=== PATIENT | female | born 1965 | race African-American/Black ===

== ENCOUNTER 2017-04-16 15:43 | Emergency (ER) | payer SELFPAY ==
[2017-04-16 16:45] LABS: Bilirubin Negative (Negative); Blood, Urine Negative (Negative); Clarity CLOUDY (Clear); Glucose, Urine (Dipstick) Negative (Negative); Leukocyte Small (Negative); Nitrite Negative (Negative); Protein, Urine (Dipstick) Negative (Neg-Trace); Urobilinogen 0.2 mg/dL (0.2-1.0)
[2017-04-16 16:47] LABS: Pathc Cast-AUWi Flag 1.89 (0-2.49)
[2017-04-16 16:57] LABS: Bacteria/HPF 2+ HPF (None Seen); Hyaline Casts/LPF NONE SEEN LPF (0-3 Hyaline); RBC/HPF 0-3 HPF (0-3); Squamous Epithelial 0-3 HPF (0-3)
[2017-04-16 16:58] LABS: Trichomonas/HPF Rare HPF (None Seen)
[2017-04-16 18:36] LABS: Hemoglobin 10.7 g/dL (12.0-16.0); Mean Corpuscular HGB CONC 32.7 g/dL (32.0-36.0); Mean Corpuscular Hemoglobin 26.2 pg (27.0-31.0); Mean Platelet Volume 8.6 fL (7.4-10.4); Platelet Count 128 thou/uL (130-400); RBC Distribution Width 18.7 % (11.5-14.5); White Blood Cell (WBC) Count 4.3 thou/uL (4.8-10.8)
[2017-04-16 18:39] LABS: ALT (SGPT) 28 U/L (8-55); AST (SGOT) 80 U/L (5-34); Albumin 4.3 g/dL (3.5-5.0); Alkaline Phosphatase 134 U/L (40-150); Anion Gap 18 mmol/L (10-20); BUN (Urea Nitrogen) Less than 4 mg/dL (7.0-18.7); Bilirubin, Total 0.3 mg/dL (0.2-1.2); Calc. Creatinine Clearance 0 mL/min (70-130); Carbon Dioxide 24 mmol/L (22-29); Chloride 92 mmol/L (98-107); Estimated GFR-MDRD Greater than 90; Globulin 4.6 g/dL (2.4-3.5); Glucose 87 mg/dL (70-105); Lipase 25 U/L (8-78); Potassium 3.8 mmol/L (3.5-5.1); Protein, Total 8.9 g/dL (6.0-8.3); Sodium 130 mmol/L (136-145)
[2017-04-16 18:50] LABS: Anisocytosis SLIGHT = 6-15 cells (100X) (0-5/hpf); Band 1 % (5-11); Eosinophils 2 % (0-10); Hypochromia SLIGHT = 6-15 cells (100X) (0-5/hpf); Lymphocytes 44 % (21-51); MDiff Complete? YES; Monocytes 3 % (0-10); Neutrophil 47 % (42-75); PLT Morphology Comment Appears Decreased; Polychromasia SLIGHT = 2-3 cells (100X) (0-2/hpf); Target Cells MODERATE= 6-15 cells (100X) (0-1/hpf)
[2017-04-16] MEDS ORDERED: Azithromycin 250 MG TAB ONE (18:51)
[2017-04-16] MEDS ORDERED: Lidocaine 1% PF 5 ML VIAL ONE (18:51)
[2017-04-16] MEDS ORDERED: cefTRIAXone\\ROCEPHIN 250 MG VIAL ONE (18:51)
[2017-04-16 22:50] LABS: Lactic Acid 3.8 mmol/L (0.5-2.2)
--- NOTE | 2017-04-17 00:19 | ULT ---
EXAM: PELVIC ULTRASOUND 04/16/17 HISTORY: Pelvic pain. COMPARISON: None. TECHNIQUE: Transabdominal and endovaginal imaging of the pelvis is performed. Ovaries are interrogated with torres scale, color flow, doppler imaging and spectral waveform analysis. FINDINGS: The uterus is identified measuring 7.6 x 4.6 x 5.7 cm. At the uterine fundus, there is a heterogeneou s soft tissue echotexture mass with components of calcification. Degenerating fibroid is favored but cannot be completely verified. Mass measures 2.8 x 3.0 x 3.2 cm. Suboptimal evaluation of the endometrium. Right ovary measures 2.6 x 4.1 x 1.8 cm. Left ovary measures 2.3 x 1.8 x 1.8 cm. The ovaries have a n ormal echotexture. No free fluid. OVARIAN DOPPLER: Vascular flow to the left and right ovary. IMPRESSION: Heterogeneous mass in the uterine fundus with calcifications. Uterine leiomyoma is favored. Compariso n made with renal stone CT from 04/07/15 demonstrates a corresponding calcified mass in the uterine f undus. POS: [facility]
[2017-04-18 01:23] LABS: Chlamydia by PCR Not Detected (NotDetected); GC by PCR Not Detected (NotDetected)
== END 2017-04-16 22:52 | disposition home or self-care (01) ==
LOC: ERS 15:43
DX: A59.01 Trichomonal vulvovaginitis (principal); N39.0 Urinary tract infection, site not specified; N73.9 Female pelvic inflammatory disease, unspecified; K52.9 Noninfective gastroenteritis and colitis, unspecified; I49.9 Cardiac arrhythmia, unspecified; F41.9 Anxiety disorder, unspecified; F20.9 Schizophrenia, unspecified; F31.9 Bipolar disorder, unspecified
CPT/HCPCS: 36415; 76856; 80053; 81003; 81015; 83605; 83690; 85025; 87086; 87480; 87491; 87510; 87591; 87660; 96360; 96361; 96372; J0696; J2001

== ENCOUNTER 2017-06-26 14:08 | Inpatient (IN) | payer SELFPAY ==
[2017-06-26 15:20] LABS: Hemoglobin 10.4 g/dL (12.0-16.0); Mean Corpuscular Hemoglobin 26.5 pg (27.0-31.0); Mean Corpuscular Volume 80.1 fl (81.0-99.0); Mean Platelet Volume 7.5 fL (7.4-10.4); Platelet Count 224 thou/uL (130-400); RBC Distribution Width 20.4 % (11.5-14.5); Red Blood Cell (RBC) Count 3.94 mill/uL (4.20-5.40)
[2017-06-26 15:41] LABS: #Basophils 0.1 thou/uL (0.0-0.2); #Lymphocytes 0.7 thou/uL (1.20-3.40); #Monocytes 0.5 thou/uL (0.11-0.59); #Neutrophils 3.7 thou/uL (1.40-6.50); %Basophils 1.3 % (0.0-1.0); %Eosinophils 0.2 % (0.0-10.0); %Lymphocytes 14.5 % (21.0-51.0); %Monocytes 9.7 % (0.0-10.0); %Neutrophils 74.2 % (42.0-75.0); Anisocytosis SLIGHT = 6-15 cells (100X) (0-5/hpf); MDiff Complete? YES; PLT Morphology Comment Appears Adequate
[2017-06-26 15:44] LABS: ALT (SGPT) 28 U/L (8-55); AST (SGOT) 51 U/L (5-34); Albumin 4.3 g/dL (3.5-5.0); Alkaline Phosphatase 110 U/L (40-150); Anion Gap 16 mmol/L (10-20); BUN (Urea Nitrogen) 5 mg/dL (7.0-18.7); Bilirubin, Total 0.9 mg/dL (0.2-1.2); CK (CPK) 434 U/L (29-168); Calc. Creatinine Clearance 0 mL/min (70-130); Calcium 9.7 mg/dL (7.8-10.44); Carbon Dioxide 25 mmol/L (22-29); Chloride 82 mmol/L (98-107); Estimated GFR-MDRD Greater than 90; Globulin 4.5 g/dL (2.4-3.5); Glucose 80 mg/dL (70-105); Potassium 4.1 mmol/L (3.5-5.1); Protein, Total 8.8 g/dL (6.0-8.3)
[2017-06-26 15:47] LABS: Sodium 119 mmol/L (136-145)
[2017-06-26 17:13] LABS: Bilirubin Negative (Negative); Blood, Urine Trace (Negative); Clarity CLOUDY (Clear); Glucose, Urine (Dipstick) Negative (Negative); Leukocyte Large (Negative); Nitrite Positive (Negative); Protein, Urine (Dipstick) Trace mg/dL (Neg-Trace); Specific Gravity, Urine 1.013 (1.002-1.036); Urobilinogen 0.2 mg/dL (0.2-1.0)
[2017-06-26 17:18] LABS: Bacteria/HPF 4+ HPF (None Seen); Hyaline Casts/LPF 0-3 HYALINE CAST LPF (0-3 Hyaline); Pathc Cast-AUWi Flag 0.13 (0-2.49); Squamous Epithelial 0-3 HPF (0-3)
[2017-06-26 17:27] LABS: Troponin I Less than 0.010 ng/mL (< 0.028)
--- NOTE | 2017-06-26 17:32 | RAD ---
PORTABLE CHEST: 06/26/17 HISTORY: Nausea, vomiting. FINDINGS/IMPRESSION: Lungs are clear of infiltrate. Heart and mediastinum unremarkable. No acute process. POS: [facility]
[2017-06-26 17:51] LABS: Amphetamine Not Detected (NotDetected); Barbiturates Screen Not Detected (NotDetected); Benzodiazepine Screen Not Detected (NotDetected); Cocaine Metabolite Screen Not Detected (NotDetected); Medtox Control Line Valid? VALID (VALID); Medtox Reader # READER 4; Methadone Not Detected (NotDetected); Methamphetamine Not Detected (NotDetected); Opiate Screen Not Detected (NotDetected); Oxycodone Screen Not Detected (NotDetected); Phencyclidine (PCP) Not Detected (NotDetected); THC/Cannabinoid Screen Not Detected (NotDetected); Tricyclic Screen Not Detected (NotDetected)
[2017-06-26 17:56] LABS: Acetaminophen Less than 6.0 mcg/mL (10.0-30.0); Alcohol Less than 10 mg/dL (Less than 10); Salicylate Less than 8.0 mg/dL (15.0-30.0)
[2017-06-26] MEDS ORDERED: cefTRIAXone\\ROCEPHIN 2 GM in Sodium Chloride 0.9% 100 ML IVPB SCH (18:45)
[2017-06-26] MEDS ORDERED: Ondansetron ODT 4 MG TAB SL PRN (21:10)
[2017-06-26] MEDS ORDERED: Sodium Chloride 0.9% 1,000 ML IV SCH (21:10)
[2017-06-26] MEDS ORDERED: Ondansetron HCl/PF 4 MG/2 ML Vial IVP PRN (21:10)
[2017-06-26] MEDS ORDERED: Venlafaxine HCl XR 150 MG CAP PO SCH (21:30)
[2017-06-26] MEDS: Sodium Chloride 0.9% 1,000 ML IV SCH ×2 (22:29→23:57)
[2017-06-27 01:32] VITALS: BMI 23.4
[2017-06-27 04:46] LABS: Potassium, Urine Less than 10.0 mmol/L; Sodium, Urine 27 mmol/L (Not Available)
[2017-06-27 08:55] LABS: Anion Gap 17 mmol/L (10-20); BUN (Urea Nitrogen) 4 mg/dL (7.0-18.7); Calc. Creatinine Clearance 126 mL/min (70-130); Calcium 8.8 mg/dL (7.8-10.44); Carbon Dioxide 21 mmol/L (22-29); Chloride 97 mmol/L (98-107); Estimated GFR-MDRD Greater than 90; Glucose 67 mg/dL (70-105); Potassium 3.5 mmol/L (3.5-5.1); Sodium 131 mmol/L (136-145)
[2017-06-27] MEDS: Venlafaxine HCl XR 150 MG CAP PO SCH (08:57)
[2017-06-27] MEDS: Amlodipine 5 MG TAB PO SCH (08:57)
[2017-06-27] MEDS: Sodium Chloride 0.9% 1,000 ML IV SCH (08:58)
[2017-06-27 09:49] LABS: Thyroid Stimulating Hormone 1.5432 uIU/mL (0.35-4.94)
[2017-06-27] MEDS ORDERED: Dextrose 5% in Water 1,000 ML IV SCH (10:15)
[2017-06-27 10:32] LABS: Anion Gap 12 mmol/L (10-20); BUN (Urea Nitrogen) 5 mg/dL (7.0-18.7); Calc. Creatinine Clearance 100 mL/min (70-130); Calcium 8.7 mg/dL (7.8-10.44); Carbon Dioxide 24 mmol/L (22-29); Chloride 98 mmol/L (98-107); Estimated GFR-MDRD Greater than 90; Glucose 93 mg/dL (70-105); Potassium 3.7 mmol/L (3.5-5.1); Sodium 130 mmol/L (136-145)
[2017-06-27 10:39] LABS: CKMB 4.6 ng/mL (0-6.6); Troponin I Less than 0.010 ng/mL (< 0.028)
[2017-06-27] MEDS ORDERED: levETIRAcetam 500 MG TAB PO SCH (10:45)
[2017-06-27] MEDS: cefTRIAXone\\ROCEPHIN 2 GM in Sodium Chloride 0.9% 100 ML IVPB SCH (10:49)
[2017-06-27 11:24] LABS: Osmolality, Urine 119 mOsm/kg (300-900)
[2017-06-27 11:28] LABS: Sodium, Urine 30 mmol/L (Not Available)
[2017-06-27 12:52] LABS: Anion Gap 13 mmol/L (10-20); BUN (Urea Nitrogen) 6 mg/dL (7.0-18.7); Calc. Creatinine Clearance 103 mL/min (70-130); Calcium 8.7 mg/dL (7.8-10.44); Carbon Dioxide 25 mmol/L (22-29); Chloride 97 mmol/L (98-107); Estimated GFR-MDRD Greater than 90; Glucose 94 mg/dL (70-105); Magnesium 1.8 mg/dL (1.6-2.6); Potassium 3.5 mmol/L (3.5-5.1); Sodium 131 mmol/L (136-145)
--- NOTE | 2017-06-27 13:52 | CON ---
DATE OF CONSULTATION: 06/27/2017 REASON FOR CONSULTATION: Hyponatremia. TIME OF CONSULTATION: 08:15 A.M. on 06/27/2017. HISTORY OF PRESENT ILLNESS: This is a very pleasant 51-year-old female, who presented to the [facility] for nausea. The patient was noted to have sodium 119, was admitted and no further follow up labs w ere done. The patient denies no headache, numbness, tingling or weakness. Denies any excessive flui d intake. PAST MEDICAL HISTORY: Significant for arrhythmia, history of hypertension, uterine fibroids, colitis , seizures. PAST SURGICAL HISTORY: Appendectomy, tubal ligation, orthopedic surgery, left ankle surgery. SOCIAL ECONOMIC HISTORY: The patient drinks 6 beers per day. FAMILY HISTORY: Negative for ESRD. ALLERGIES: Reviewed. HOME MEDICATIONS: List reviewed. HOSPITAL MEDICATIONS: Reviewed. REVIEW OF SYSTEMS: Fifteen point review of systems was performed and negative except for positives n oted above. GENERAL: Weakness- HEAD: Headache- NECK: No swelling or lumps. NOSE: No epistaxis or discharge. EYES: No diplopia or pain. RESPIRATORY: Dyspnea- CARDIOVASCULAR: Chest pain- GASTROINTESTINAL: Nausea- /HEAVY DUTY MECHANIC: Hematuria- MUSCULOSKELETAL: No joint pain. NEUROPSYCHIATIC SYSTEMS: No suicidal ideation. No ideation. SKIN: Denies any rash or ulcer. CONSTITUTIONAL: No fever or chills. PHYSICAL EXAMINATION: GENERAL: Patient is awake and alert. VITAL SIGNS: Afebrile, pulse 95, breathing 18, and blood pressure 121/82. GENERAL APPEARANCE AND MENTAL STATUS: Fair. HEAD/NECK: Normocephalic. Atraumatic. EYES: EOMI. No deformity. EARS: Clear. No ulcers. NOSE: Intact. No lesions. MOUTH: Clear. No discharge. THROAT: Clear. No exudate. LUNGS: Clear. No crackles. CARDIAC: S1, S2. No rub. ABDOMEN: Benign. BS+. GENITALIA/RECTUM: Allen absent. BACK/EXTREMITIES: Edema 0+ Ulcer- NEUROLOGICAL: Alert and motor intact. SKIN: Rash- Bruise- LYMPHATICS: Edema- Ulcer- LABORATORY DATA: Hemoglobin is 10.5, potassium 3.5. Sodium was 131. This was done at 5:00 a.m. thi s morning. ASSESSMENT AND RECOMMENDATIONS: Hyponatremia due to beer potomania versus excessive fluid intake. I will stop the normal saline and start the patient on D5W to lower the sodium and check sodium every 2-4 hours. This was discussed with the primary team.
[2017-06-27] MEDS: Dextrose 5% in Water 1,000 ML IV SCH ×2 (14:30→20:38)
[2017-06-27 16:15] LABS: Anion Gap 11 mmol/L (10-20); BUN (Urea Nitrogen) 5 mg/dL (7.0-18.7); Calc. Creatinine Clearance 111 mL/min (70-130); Calcium 8.7 mg/dL (7.8-10.44); Carbon Dioxide 26 mmol/L (22-29); Chloride 96 mmol/L (98-107); Estimated GFR-MDRD Greater than 90; Glucose 96 mg/dL (70-105); Potassium 3.5 mmol/L (3.5-5.1); Sodium 129 mmol/L (136-145)
[2017-06-27 16:22] LABS: CKMB 4.6 ng/mL (0-6.6); Troponin I Less than 0.010 ng/mL (< 0.028)
[2017-06-27 20:31] LABS: Anion Gap 13 mmol/L (10-20); BUN (Urea Nitrogen) 4 mg/dL (7.0-18.7); Calc. Creatinine Clearance 113 mL/min (70-130); Calcium 8.6 mg/dL (7.8-10.44); Carbon Dioxide 23 mmol/L (22-29); Chloride 97 mmol/L (98-107); Estimated GFR-MDRD Greater than 90; Glucose 99 mg/dL (70-105); Potassium 3.3 mmol/L (3.5-5.1); Sodium 130 mmol/L (136-145)
[2017-06-27] MEDS: levETIRAcetam 500 MG TAB PO SCH (20:37)
[2017-06-28] MEDS: Dextrose 5% in Water 1,000 ML IV SCH (05:39)
[2017-06-28 05:58] LABS: Anion Gap 12 mmol/L (10-20); BUN (Urea Nitrogen) Less than 4 mg/dL (7.0-18.7); Calc. Creatinine Clearance 119 mL/min (70-130); Calcium 8.9 mg/dL (7.8-10.44); Carbon Dioxide 26 mmol/L (22-29); Chloride 98 mmol/L (98-107); Estimated GFR-MDRD Greater than 90; Glucose 91 mg/dL (70-105); Potassium 3.3 mmol/L (3.5-5.1); Sodium 133 mmol/L (136-145)
--- NOTE | 2017-06-28 06:23 | HP ---
DATE OF ADMISSION: 06/26/2017 REASON FOR ADMISSION AND CHIEF COMPLAINT: Hyponatremia, nausea, vomiting. HISTORY OF PRESENT ILLNESS: Ms. Todd is a 51-year-old -Malagasy female who was initially se en in the clinic a day before for headache. The patient was found to have blood pressure and she was not taking any medications prior to that, also not taking her seizure medications properly. The monse herrera was found to have hyponatremia and the lab work done in the clinic. Her sodium was 122. The jamilah lemus advised to go to the emergency room. In view of that, the patient came to the ER and found to have sodium of 119. She has been having nausea, vomiting for a day, vomited few times. The patient also drinks alcohol almost daily, drinks 6 beers a day. Has not been taking her seizure medications and other medication regularly. In the ER, the patient is hemodynamically stable. She was started o n IV fluids. ER physician started normal saline at 500 mL per hour and also received a dose of Rocep hin in view of her urinary tract infection. A Nephrology consult was done. PAST MEDICAL HISTORY: 1. Partial complex seizure disorder. 2. Alcohol abuse. 3. Noncompliant with medications. 4. Bipolar disorder. PAST SURGICAL HISTORY: 1. Status post appendectomy. 2. Status post tubal ligation. 3. Status post left hand surgery. CURRENT MEDICATIONS: The patient supposed to be taking Dilantin 200 b.i.d., multivitamin daily, Kepp ra 500 b.i.d., folic acid daily, Venlafaxine 150 daily, Seroquel 50 mg at bedtime, amlodipine 5 mg da moris. ALLERGIES: No known drug allergies. FAMILY HISTORY: Nothing of interest. SOCIAL HISTORY: The patient lives with family. No history of smoking. Drinks alcohol daily almost 6 beers a day. REVIEW OF SYSTEMS: Cardiovascular: No chest pain. No shortness of breath. Respiratory: No fever or cough. Gastrointestinal: Has nausea and vomiting. No abdominal pain. Genitourinary: No dysuri a or hematuria. Central nervous system: No headache, no dizziness. PHYSICAL EXAMINATION: GENERAL: The patient is alert, awake, oriented x3. VITAL SIGNS: Temperature 98, pulse 98, respirations 20, blood pressure 170/100. HEENT: Head is normocephalic, atraumatic. Pupils are equal and reactive. Nasopharynx is pink, mois t. NECK: Supple. No JVD. LUNGS: Bilateral air entry present. No rales, no rhonchi. HEART: S1 and S2 regular. ABDOMEN: Soft. No distention, no tenderness. Normal bowel sounds present. RECTAL: Deferred. CENTRAL NERVOUS SYSTEM: The patient is alert, awake, oriented x3. Motor system power 4/5 in all ext remities. Deep tendon reflexes, 2+ bilaterally. Plantar downgoing. Sensory intact. LABORATORY DATA: CBC shows WBC 5, hemoglobin 10, hematocrit 31, platelets 224. Metabolic panel: So dium 119, potassium 4, chloride 82, CO2 of 25, urea nitrogen is 5, creatinine 0.6, glucose 80, CK-MB 8, troponin I less than 0.010. Chest x-ray negative. EKG showed normal sinus rhythm, no acute ST-T wave changes seen. ASSESSMENT: 1. Severe hyponatremia. 2. Seizure disorder. 3. Urinary tract infection. 4. Alcohol abuse. 5. Noncompliant with medications. 6. History of bipolar disorder. 7. Anxiety disorder. PLAN: 1. Vital signs q.4 hours. 2. Activity: As tolerated. 3. Allergies: No known drug allergies 4. IV fluids: Normal saline at 80 mL per hour. 5. . 6. Nephrology consult. 7. Continue her home medications. 8. Diet: Regular. 9. Basic metabolic panel every few hours.
[2017-06-28] MEDS: Amlodipine 5 MG TAB PO SCH (09:29)
[2017-06-28] MEDS: levETIRAcetam 500 MG TAB PO SCH (09:29)
[2017-06-28] MEDS: cefTRIAXone\\ROCEPHIN 2 GM in Sodium Chloride 0.9% 100 ML IVPB SCH (09:30)
[2017-06-28] MEDS: Venlafaxine HCl XR 150 MG CAP PO SCH (09:30)
--- NOTE | 2017-06-28 11:05 | PRG ---
DATE OF SERVICE: 06/28/2017 SUBJECTIVE: A 51-year-old female being seen for hyponatremia. The patient's sodium remained in the 130s with hydration. The patient denies headache, numbness, tingling or weakness. OBJECTIVE: GENERAL: The patient is awake, alert. VITAL SIGNS: Afebrile, pulse 85, breathing 16, blood pressure 131/68. GENERAL APPEARANCE AND MENTAL STATUS: Fair. HEAD/NECK: Normocephalic. Atraumatic. EYES: EOMI. No deformity. EARS: Clear. No ulcers. NOSE: Intact. No lesions. MOUTH: Clear. No discharge. THROAT: Clear. No exudate. LUNGS: Clear. No crackles. CARDIAC: S1, S2. No rub. ABDOMEN: Benign. BS+. GENITALIA/RECTUM: Allen absent. BACK/EXTREMITIES: Edema 0+ Ulcer- NEUROLOGICAL: Alert and motor intact. SKIN: Rash- Bruise- LYMPHATICS: Edema- Ulcer- LABORATORY: Potassium 3.3. Sodium was 133. ASSESSMENT AND RECOMMENDATIONS: 1. Hyponatremia, rate of correction has been maintained to less than 6 mEq per 24 hour. 2. Hypokalemia. Recommend 40 mEq potassium by mouth. 3. Alcohol abuse. Hyponatremia was acute. Recommend a close sodium monitoring and follow. Prognos is poor.
[2017-06-28] MEDS: Potassium Chloride 20 MEQ TAB PO SCH ×2 (13:26→16:46)
[2017-06-28 16:05] VITALS: BP 137/86; TEMP 98.9
--- NOTE | 2017-06-29 14:23 | EKG ---
Test Reason : Blood Pressure : / mmHG Vent. Rate : 097 BPM Atrial Rate : 097 BPM P-R Int : 116 ms QRS Dur : 080 ms QT Int : 360 ms P-R-T Axes : 037 032 051 degrees QTc Int : 457 ms Normal sinus rhythm Possible Left atrial enlargement Borderline ECG Confirmed by SARAI MCKEON M.D. ([id number]), communications editor BAILEE PERKINS ([id number]) on 06/29/2017 2:22:02 PM Referred By: Confirmed By:SARAI MCKEON M.D.
== END 2017-06-28 20:09 | disposition home or self-care (01) | DRG 641 ==
LOC: ERS 14:08 → EEVIPCON 17:35 → ERHOLD 17:35 → 2NO 20:55
PROVIDERS: ADMIT Internal Medicine; ATTEND Internal Medicine
DX: E87.1 Hypo-osmolality and hyponatremia (principal); N39.0 Urinary tract infection, site not specified; E87.6 Hypokalemia; F10.10 Alcohol abuse, uncomplicated; F31.9 Bipolar disorder, unspecified; G40.909 Epilepsy, unspecified, not intractable, without status epilepticus; F41.9 Anxiety disorder, unspecified; Z91.14 Patient's other noncompliance with medication regimen; Z79.899 Other long term (current) drug therapy
CPT/HCPCS: 36415; 36416; 71045; 80048; 80053; 80185; 80306; 80307; 81003; 81015; 82436; 82550; 82553; 83605; 83690; 83735; 83880; 83930; 83935; 84133; 84300; 84443; 84484; 85025; 87077; 87086; 87186; 93005; 96361; 96365; A4216; J0696; J7050

== ENCOUNTER 2017-08-15 19:12 | Inpatient (IN) | payer SELFPAY ==
[2017-08-15 20:58] LABS: Amphetamine Not Detected (NotDetected); Barbiturates Screen Not Detected (NotDetected); Benzodiazepine Screen Not Detected (NotDetected); Cocaine Metabolite Screen Not Detected (NotDetected); Medtox Control Line Valid? VALID (VALID); Medtox Reader # READER 4; Methadone Not Detected (NotDetected); Methamphetamine Not Detected (NotDetected); Opiate Screen Not Detected (NotDetected); Oxycodone Screen Not Detected (NotDetected); Phencyclidine (PCP) Not Detected (NotDetected); THC/Cannabinoid Screen Not Detected (NotDetected); Tricyclic Screen Not Detected (NotDetected)
[2017-08-15 21:19] LABS: Anion Gap 19 mmol/L (10-20); BUN (Urea Nitrogen) Less than 4 mg/dL (9.8-20.1); CK (CPK) 1822 U/L (29-168); Calc. Creatinine Clearance 0 mL/min (70-130); Calcium 8.5 mg/dL (7.8-10.44); Carbon Dioxide 23 mmol/L (22-29); Chloride 96 mmol/L (98-107); Estimated GFR-MDRD Greater than 90; Glucose 81 mg/dL (70-105); Potassium 3.7 mmol/L (3.5-5.1); Sodium 134 mmol/L (136-145)
[2017-08-15 21:22] LABS: Alcohol 414 mg/dL (Less than 10)
[2017-08-15 21:29] LABS: Anisocytosis SLIGHT = 6-15 cells (100X) (0-5/hpf); Eosinophils 7 % (0-10); Hemoglobin 10.6 g/dL (12.0-16.0); Lymphocytes 47 % (21-51); MDiff Complete? YES; Mean Corpuscular HGB CONC 32.5 g/dL (32.0-36.0); Mean Corpuscular Hemoglobin 27.4 pg (27.0-31.0); Mean Corpuscular Volume 84.4 fl (81.0-99.0); Mean Platelet Volume 9.7 fL (7.4-10.4); Monocytes 16 % (0-10); Neutrophil 29 % (42-75); PLT Morphology Comment Appears Adequate; Platelet Count 137 thou/uL (130-400); RBC Distribution Width 21.8 % (11.5-14.5); Red Blood Cell (RBC) Count 3.88 mill/uL (4.20-5.40); Tear Drops SLIGHT = 2-5 cells (100X) (0-1/hpf); White Blood Cell (WBC) Count 3.1 thou/uL (4.8-10.8)
[2017-08-15] MEDS ORDERED: Ketorolac Tromethamine 30 MG/ML VIAL ONE (22:22)
--- NOTE | 2017-08-15 22:49 | RAD ---
RADIOGRAPH LEFT KNEE 4 VIEWS: 08/15/17 HISTORY: 52-year-old female with left knee pain. FINDINGS: No joint effusion, or edema in Hoffa's fat pad. No fracture or dislocation. Joint spaces are maintain ed without erosions or osteophytes. IMPRESSION: Negative. POS: [facility]
[2017-08-15] MEDS ORDERED: Ondansetron HCl/PF 4 MG/2 ML Vial IVP PRN (22:56)
[2017-08-15] MEDS ORDERED: Ibuprofen 800 MG TAB PO PRN (22:56)
[2017-08-15] MEDS ORDERED: Ondansetron ODT 4 MG TAB SL PRN (22:56)
[2017-08-15] MEDS ORDERED: Diazepam 5 MG TAB PO PRN (22:58)
[2017-08-15] MEDS ORDERED: Diazepam 5 MG TAB PO SCH (23:00)
[2017-08-15] MEDS: Sodium Chloride 0.9% 1,000 ML IV SCH (23:55)
[2017-08-16] MEDS: Multivitamins, Adult 10 ML, Thiamine HCl 100 MG, Folic Acid 1 MG in Dextrose 5 %-0.45 %... IV SCH ×2 (00:03→23:41)
[2017-08-16 01:39] VITALS: BMI 23.9
[2017-08-16] MEDS ORDERED: Diazepam 5 MG TAB PO PRN (04:00)
[2017-08-16] MEDS: Magnesium Oxide 400 MG TAB PO SCH (07:50)
[2017-08-16] MEDS: Sodium Chloride 0.9% 1,000 ML IV SCH ×2 (07:50→19:56)
[2017-08-16 10:39] LABS: Alcohol 77 mg/dL (Less than 10); CK (CPK) 1246 U/L (29-168)
[2017-08-16] MEDS: levETIRAcetam 500 MG TAB PO SCH (20:00)
--- NOTE | 2017-08-17 03:59 | HP ---
DATE OF ADMISSION: 08/15/2017 REASON FOR ADMISSION AND CHIEF COMPLAINT: Evaluation of her alcohol abuse and inappropriate behavior . HISTORY OF PRESENT ILLNESS: Ms. Todd is a 52-year-old -Uz[place] female with past medical hi story of seizure disorder and hypertension, who was brought in because of frequent falls and alcohol intoxication. The patient's son called the EMS because she was not behaving right, she was falling, and not very alert. EMS found the patient sitting on the porch, hitting the table, complained of kne e pain and patient has not been taking seizure medications for the last 4 days. She states she could not afford to buy them. The patient was seen in the office, seen by the nurse practitioner for her knee pain. The patient also complaining of pain in the thigh and leg muscles. The patient was evalu ated in the ER and found to have markedly elevated alcohol level of more than 400 and elevated CPK. So, the patient was started on IV fluids and being admitted for further evaluation. The patient admi ts to drinking alcohol. She has history of alcohol abuse as well as has been drinking beer. PAST MEDICAL HISTORY: 1. Seizure disorder. 2. Hypertension. 3. History of bipolar disorder. 4. Alcohol abuse. PAST SURGICAL HISTORY: Nothing significant. CURRENT MEDICATIONS: The patient was supposed to be on Keppra 500 b.i.d., Dilantin 200 b.i.d., amlod ipine 5 mg daily, Seroquel 200 mg at bedtime, and Effexor XR 150 daily. ALLERGIES: No known drug allergies. FAMILY HISTORY: Nothing of interest. SOCIAL HISTORY: The patient lives with family. No history of smoking, but drinks beer every day. REVIEW OF SYSTEMS: Unremarkable except for the knee pain and change in mental status. PHYSICAL EXAMINATION: GENERAL: The patient is alert, awake, oriented x2. VITAL SIGNS: Temperature 98, pulse 88, respiratory rate 20, blood pressure 130/80. HEENT: Head is normocephalic, atraumatic. Pupils are equal and reactive to light. Nasopharynx was pale and dry. Hard and soft palate, no lesions seen. SKIN: Skin turgor decreased. NECK: Supple. No JVD. LUNGS: Bilateral air entry present. No rales, no rhonchi. CARDIAC: S1, S2 regular. ABDOMEN: Soft, no tenderness, no distention. Normal bowel sounds present. RECTAL: Deferred. CENTRAL NERVOUS SYSTEM: The patient is alert, awake, oriented x2. Motor system power 4/5 in all ext remities. Deep tendon reflexes 2+ bilaterally. Plantar downgoing. Sensory intact. LABORATORY AND X-RAY FINDINGS: CBC shows WBC 3.1, hemoglobin 10.6, hematocrit 32, platelets 137,000. Metabolic panel: Sodium 134, potassium 3.7, chloride 96, CO2 of 23, BUN less than 4, creatinine 0. 6, glucose 81. CPK was 822. Urine toxicology screen positive for alcohol level of 414. X-ray of th e knee unremarkable. ASSESSMENT: 1. Severe alcoholic intoxication. 2. Rhabdomyolysis. 3. Hypertension. 4. Seizure disorder. 5. History of bipolar disorder. PLAN: 1. Vital signs q.4 hours. 2. Activity: As tolerated. 3. Allergies: NKDA. 4. IV fluids: Normal saline at 125 mL per hour. 5. Diet: Regular. 6. Continue her home medications. 7. Hold Seroquel. 8. We will repeat alcohol and CPK levels.
[2017-08-17] MEDS: Sodium Chloride 0.9% 1,000 ML IV SCH (05:15)
[2017-08-17] MEDS: levETIRAcetam 500 MG TAB PO SCH (07:54)
[2017-08-17] MEDS: Magnesium Oxide 400 MG TAB PO SCH (07:54)
[2017-08-17 07:58] VITALS: BP 126/80; TEMP 98.7
[2017-08-17] MEDS ORDERED: Amlodipine 5 MG TAB PO SCH (09:00)
[2017-08-17 13:08] LABS: Alcohol Less than 10 mg/dL (Less than 10); CK (CPK) 794 U/L (29-168)
== END 2017-08-17 14:48 | disposition home or self-care (01) | DRG 897 ==
LOC: ERS 19:12 → T4-A 23:06
PROVIDERS: ADMIT Internal Medicine; ATTEND Internal Medicine
DX: F10.129 Alcohol abuse with intoxication, unspecified (principal); M62.82 Rhabdomyolysis; F31.9 Bipolar disorder, unspecified; R56.9 Unspecified convulsions; Z91.81 History of falling; Y90.8 Blood alcohol level of 240 mg/100 ml or more; G40.909 Epilepsy, unspecified, not intractable, without status epilepticus; Z79.899 Other long term (current) drug therapy; I10 Essential (primary) hypertension
CPT/HCPCS: 36415; 80048; 80306; 80307; 82550; 85025; J1885; J3411; J3475; J7042; J7050

== ENCOUNTER 2017-12-15 23:37 | Emergency (ER) | payer SELFPAY ==
[2017-12-16 01:30] LABS: ALT (SGPT) 41 U/L (8-55); AST (SGOT) 148 U/L (5-34); Albumin 4.2 g/dL (3.5-5.0); Alcohol 364 mg/dL (Less than 10); Alkaline Phosphatase 153 U/L (40-150); Anion Gap 18 mmol/L (10-20); BUN (Urea Nitrogen) Less than 4 mg/dL (9.8-20.1); Bilirubin, Total 0.4 mg/dL (0.2-1.2); Calc. Creatinine Clearance 0 mL/min (70-130); Calcium 8.6 mg/dL (7.8-10.44); Carbon Dioxide 22 mmol/L (22-29); Chloride 93 mmol/L (98-107); Estimated GFR-MDRD Greater than 90; Globulin 4.1 g/dL (2.4-3.5); Glucose 90 mg/dL (70-105); Potassium 3.5 mmol/L (3.5-5.1); Protein, Total 8.3 g/dL (6.0-8.3); Sodium 129 mmol/L (136-145)
[2017-12-16 01:33] LABS: Hemoglobin 10.8 g/dL (12.0-16.0); Mean Corpuscular HGB CONC 33.6 g/dL (32.0-36.0); Mean Corpuscular Hemoglobin 27.9 pg (27.0-31.0); Mean Platelet Volume 8.4 fL (7.4-10.4); Platelet Count 128 thou/uL (130-400); RBC Distribution Width 17.8 % (11.5-14.5); Red Blood Cell (RBC) Count 3.88 mill/uL (4.20-5.40)
[2017-12-16 01:34] LABS: Troponin I Less than 0.010 ng/mL (< 0.028)
[2017-12-16 01:45] LABS: Eosinophils 4 % (0-10); Lymphocytes 64 % (21-51); MDiff Complete? YES; Monocytes 14 % (0-10); Neutrophil 18 % (42-75)
[2017-12-16] MEDS ORDERED: Multivitamins, Adult 10 ML, Thiamine HCl 100 MG, Folic Acid 1 MG in Dextrose 5 %-0.45 %... IV SCH (02:15)
--- NOTE | 2017-12-16 09:07 | RAD ---
PORTABLE CHEST: HISTORY: Chest pain. COMPARISON: 06/26/17 study. FINDINGS: Heart size and mediastinum are within normal limits. The lungs are clear of infiltrates. No signifi cant bony findings. IMPRESSION: No active intrathoracic disease. POS: [facility]
== END 2017-12-16 11:45 | disposition home or self-care (01) ==
LOC: ERS 23:37
DX: F10.129 Alcohol abuse with intoxication, unspecified (principal); R07.9 Chest pain, unspecified; I10 Essential (primary) hypertension; F41.9 Anxiety disorder, unspecified; F31.9 Bipolar disorder, unspecified
CPT/HCPCS: 36415; 71045; 80053; 80307; 82553; 84484; 85025; 93005; 96365; 96366; J3411; J7042

== ENCOUNTER 2018-09-28 20:30 | Emergency (ER) | payer BC ==
[2018-09-28 20:59] LABS: #Basophils 0.2 thou/uL (0.0-0.2); #Eosinphils 0.1 thou/uL (0.0-0.7); #Lymphocytes 2.9 thou/uL (1.20-3.40); #Monocytes 0.4 thou/uL (0.11-0.59); #Neutrophils 2.4 thou/uL (1.40-6.50); %Basophils 2.6 % (0.0-1.0); %Eosinophils 2.1 % (0.0-10.0); %Lymphocytes 49.1 % (21.0-51.0); %Monocytes 6.3 % (0.0-10.0); %Neutrophils 39.9 % (42.0-75.0); Hemoglobin 12.2 g/dL (12.0-16.0); Mean Corpuscular HGB CONC 33.7 g/dL (32.0-36.0); Mean Corpuscular Volume 85.8 fL (78.0-98.0); Mean Platelet Volume 7.7 fL (7.4-10.4); Platelet Count 156 thou/uL (130-400); RBC Distribution Width 18.6 % (11.5-14.5); Red Blood Cell (RBC) Count 4.22 mill/uL (4.20-5.40); White Blood Cell (WBC) Count 5.9 thou/uL (4.8-10.8)
[2018-09-28 21:17] LABS: ALT (SGPT) 17 U/L (8-55); AST (SGOT) 63 U/L (5-34); Alkaline Phosphatase 137 U/L (40-150); Anion Gap 22 mmol/L (10-20); BUN (Urea Nitrogen) Less than 4 mg/dL (9.8-20.1); Bilirubin, Total 0.2 mg/dL (0.2-1.2); CK (CPK) 567 U/L (29-168); Calc. Creatinine Clearance 0 mL/min (70-130); Calcium 8.6 mg/dL (7.8-10.44); Carbon Dioxide 21 mmol/L (22-29); Chloride 93 mmol/L (98-107); Estimated GFR-MDRD Greater than 90; Globulin 4.4 g/dL (2.4-3.5); Glucose 90 mg/dL (70-105); Potassium 4.1 mmol/L (3.5-5.1); Protein, Total 8.4 g/dL (6.0-8.3); Sodium 132 mmol/L (136-145)
--- NOTE | 2018-09-28 21:36 | RAD ---
PORTABLE CHEST: HISTORY: Chest pain. FINDINGS: The lungs are clear. The heart and mediastinum appear normal. Vascular markings are normal. IMPRESSION: Negative chest. POS: [facility]
== END 2018-09-28 22:52 | disposition home or self-care (01) ==
LOC: ERS 20:30
DX: R07.9 Chest pain, unspecified (principal); F10.229 Alcohol dependence with intoxication, unspecified; I10 Essential (primary) hypertension; F31.9 Bipolar disorder, unspecified; F20.9 Schizophrenia, unspecified; F41.9 Anxiety disorder, unspecified; Y90.8 Blood alcohol level of 240 mg/100 ml or more
CPT/HCPCS: 36415; 71045; 80053; 80307; 82550; 83880; 84484; 85025; 93005; 94760

== ENCOUNTER 2018-11-21 09:07 | Outpatient (CLI) | payer BC ==
--- NOTE | 2018-11-21 10:36 | MRI ---
CERVICAL SPINE MRI WITHOUT CONTRAST: Date: 11/21/18 COMPARISON: None. HISTORY: Injury in August 2018 resulting in multiple cervical spine fractures. Patient reports cervical pain since fall. TECHNIQUE: Multiplanar multisequence MR imaging of the cervical spine is provided without contrast. FINDINGS: The sagittal STIR imaging demonstrates no significant focal area of osseous marrow edema. The obliquely oriented fracture line at the anterior inferior aspect of the C2 vertebral body is agai n noted. CT examination would be required to evaluate for healing. The well-defined fracture line suggests that this fracture has not healed. Prior CT examination performed in August 2018 demonstrated a dditional fractures in the region of the left transverse process at C5 and C7, which cannot be appreciated on this examination secondary to location. C2-3: No significant central canal or neural foraminal stenosis. C3-4: Mild bilateral facet hypertrophy. Mild disc bulge with minimal central canal stenosis. No signi ficant neural foraminal stenosis on either side. C4-5: There is disc space narrowing and disc desiccation with minimal disc bulge and bilateral facet hypertrophy. There is mild central canal stenosis and mild bilateral neural foraminal stenosis. C5-6: There is disc space narrowing and disc desiccation with a prominent central disc herniation whi ch abuts the ventral aspect of the cord with a mild degree of cord flattening and moderate/severe central canal stenosis. Bilateral facet hypertrophy noted with mild bilateral neural foraminal stenos is. C6-7: Bilateral facet hypertrophy. Mild disc space narrowing and disc desiccation. No significant luh tral canal or neural foraminal stenosis. C7-T1: No significant central canal or neural foraminal stenosis. No focal area of abnormal signal intensity is identified within the cervical cord. IMPRESSION: 1. Disc bulge with prominent central disc herniation at C5-6 causing mass effect on the cervical cord with moderate/severe central canal stenosis. 2. Fracture deformities are not well assessed via MRI. Fracture line is still seen at the C2 vertebra l body. Recommend follow-up CT examination. Transcribed Date/Time: 11/21/2018 10:57 AM
== END 2018-11-21 09:08 | disposition home or self-care (01) ==
LOC: BICMRI 09:07
PROVIDERS: ATTEND Internal Medicine
DX: S12.9XXA Fracture of neck, unspecified, initial encounter (principal); M48.02 Spinal stenosis, cervical region; M50.222 Other cervical disc displacement at C5-C6 level; M50.922 Unspecified cervical disc disorder at C5-C6 level; G95.9 Disease of spinal cord, unspecified
CPT/HCPCS: 72141

== ENCOUNTER 2018-12-12 13:13 | Outpatient (CLI) | payer BC ==
--- NOTE | 2018-12-12 13:32 | RAD ---
Cervical spine 3 views: HISTORY: Closed fracture of cervical vertebra with cervical pain COMPARISON: CT cervical spine, 08/31/2018 FINDINGS: Incompletely healed minimally displaced chip type fracture off the inferior aspect of the anterior C2 vertebral body. Disc osteophytosis and facet arthrosis. No abnormal translation between flexion and extension. The previous noted transverse process fractures are not seen on this study. IMPRESSION: No abnormal translation between flexion and extension. Incompletely healed fracture off the inferior aspect of the anterior portion of the C2 vertebral body.
== END 2018-12-12 13:14 | disposition home or self-care (01) ==
LOC: BICRAD 13:13
PROVIDERS: ATTEND Neurological Surgery
DX: S12.100D Unspecified displaced fracture of second cervical vertebra, subsequent encounter for fracture with routine healing (principal)
CPT/HCPCS: 72040

== ENCOUNTER 2019-02-04 11:24 | Emergency (ER) | payer BC ==
[2019-02-04] MEDS ORDERED: Ketorolac Tromethamine 30 MG/ML VIAL ONE (12:04)
== END 2019-02-04 12:49 | disposition home or self-care (01) ==
LOC: ERS 11:24
DX: M25.511 Pain in right shoulder (principal); I10 Essential (primary) hypertension; I49.9 Cardiac arrhythmia, unspecified; F41.9 Anxiety disorder, unspecified; F31.9 Bipolar disorder, unspecified; F20.9 Schizophrenia, unspecified; F17.210 Nicotine dependence, cigarettes, uncomplicated; W18.30XA Fall on same level, unspecified, initial encounter
CPT/HCPCS: 96372; 99283; J1885

== ENCOUNTER 2019-02-21 07:24 | Emergency (ER) | payer BC ==
[2019-02-21] MEDS ORDERED: Ketorolac Tromethamine 60 MG/2 ML VIAL ONE (07:47)
[2019-02-21] MEDS ORDERED: Cyclobenzaprine 10 MG TAB ONE (07:47)
== END 2019-02-21 10:00 | disposition home or self-care (01) ==
LOC: ERS 07:24
DX: S46.911A Strain of unspecified muscle, fascia and tendon at shoulder and upper arm level, right arm, initial encounter (principal); M54.2 Cervicalgia; M54.9 Dorsalgia, unspecified; I10 Essential (primary) hypertension; F41.9 Anxiety disorder, unspecified; F31.9 Bipolar disorder, unspecified; F20.9 Schizophrenia, unspecified; X58.XXXA Exposure to other specified factors, initial encounter
CPT/HCPCS: 96372; 99283; J1885

== ENCOUNTER 2019-05-29 21:55 | Emergency (ER) | payer BC ==
[2019-05-29] MEDS ORDERED: Ziprasidone 20 MG CAP ONE (22:20)
[2019-05-29 22:35] LABS: #Basophils 0.1 thou/uL (0.0-0.2); #Eosinphils 0.1 thou/uL (0.0-0.7); #Lymphocytes 3.4 thou/uL (1.20-3.40); #Monocytes 0.6 thou/uL (0.11-0.59); #Neutrophils 3.1 thou/uL (1.40-6.50); %Basophils 1.6 % (0.0-1.0); %Eosinophils 1.1 % (0.0-10.0); %Lymphocytes 46.7 % (21.0-51.0); %Monocytes 8.5 % (0.0-10.0); %Neutrophils 42.1 % (42.0-75.0); Hemoglobin 11.9 g/dL (12.0-16.0); Mean Corpuscular HGB CONC 31.8 g/dL (32.0-36.0); Mean Corpuscular Volume 85.1 fL (78.0-98.0); Mean Platelet Volume 7.5 fL (7.4-10.4); Platelet Count 261 thou/uL (130-400); RBC Distribution Width 15.1 % (11.5-14.5); Red Blood Cell (RBC) Count 4.42 mill/uL (4.20-5.40); White Blood Cell (WBC) Count 7.3 thou/uL (4.8-10.8)
[2019-05-29 22:48] LABS: Bilirubin Negative (Negative); Blood, Urine Negative (Negative); Clarity Clear (Clear); Glucose, Urine (Dipstick) Normal (Negative); Leukocyte Negative Leu/uL (Negative); Nitrite Negative (Negative); Protein, Urine (Dipstick) Negative (Neg-Trace); Urobilinogen Normal mg/dL (Less than 2)
[2019-05-29 22:50] LABS: Amphetamine Not Detected (NotDetected); Barbiturates Screen Not Detected (NotDetected); Benzodiazepine Screen Not Detected (NotDetected); Cocaine Metabolite Screen Not Detected (NotDetected); Medtox Control Line Valid? VALID (VALID); Medtox Reader # READER 4; Methadone Not Detected (NotDetected); Methamphetamine Not Detected (NotDetected); Opiate Screen Not Detected (NotDetected); Oxycodone Screen Not Detected (NotDetected); Phencyclidine (PCP) Not Detected (NotDetected); THC/Cannabinoid Screen Not Detected (NotDetected); Tricyclic Screen Not Detected (NotDetected)
[2019-05-29 22:55] LABS: Acetaminophen Less than 6.0 mcg/mL (10.0-30.0); Alcohol 253 mg/dL (Less than 10); CK (CPK) 139 U/L (29-168); Salicylate Less than 8.0 mg/dL (15.0-30.0)
[2019-05-29 22:56] LABS: ALT (SGPT) 10 U/L (8-55); AST (SGOT) 19 U/L (5-34); Albumin 4.8 g/dL (3.5-5.0); Alkaline Phosphatase 120 U/L (40-110); Anion Gap 16 mmol/L (10-20); BUN (Urea Nitrogen) 6 mg/dL (9.8-20.1); Bilirubin, Total 0.3 mg/dL (0.2-1.2); Calc. Creatinine Clearance 0 mL/min (70-130); Calcium 9.6 mg/dL (7.8-10.44); Carbon Dioxide 24 mmol/L (22-29); Chloride 99 mmol/L (98-107); Estimated GFR-MDRD Greater than 90; Globulin 4.5 g/dL (2.4-3.5); Glucose 95 mg/dL (70-105); Potassium 3.9 mmol/L (3.5-5.1); Protein, Total 9.3 g/dL (6.0-8.3); Sodium 135 mmol/L (136-145)
[2019-05-30] MEDS ORDERED: levETIRAcetam 500 MG TAB PO SCH (09:00)
[2019-05-30] MEDS ORDERED: Amlodipine 5 MG TAB ONE (09:32)
[2019-05-30] MEDS ORDERED: Ziprasidone 20 MG CAP PO SCH (09:45)
[2019-05-30] MEDS ORDERED: Ibuprofen 200 MG TAB ONE (10:09)
[2019-05-31] MEDS ORDERED: Amlodipine 10 MG TAB PO SCH (09:00)
== END 2019-05-30 14:34 ==
LOC: ERS 21:55
DX: F10.129 Alcohol abuse with intoxication, unspecified (principal); F29 Unspecified psychosis not due to a substance or known physiological condition; I49.9 Cardiac arrhythmia, unspecified; I10 Essential (primary) hypertension; G40.909 Epilepsy, unspecified, not intractable, without status epilepticus; F41.9 Anxiety disorder, unspecified; F31.9 Bipolar disorder, unspecified; F20.9 Schizophrenia, unspecified; Z79.899 Other long term (current) drug therapy; Y90.4 Blood alcohol level of 80-99 mg/100 ml
CPT/HCPCS: 36415; 80053; 80306; 80307; 81003; 82550; 84443; 85025; 93005

== ENCOUNTER 2020-02-05 22:18 | Observation (INO) | payer BC, OTHER ==
[2020-02-05 23:38] LABS: Hemoglobin 12.3 g/dL (12.0-16.0); Mean Corpuscular HGB CONC 33.5 g/dL (32.0-36.0); Mean Corpuscular Hemoglobin 32.2 pg (27.0-31.0); Mean Corpuscular Volume 96.1 fL (78.0-98.0); RBC Distribution Width 16.7 % (11.5-14.5); Red Blood Cell (RBC) Count 3.83 mill/uL (4.20-5.40)
[2020-02-05] MEDS ORDERED: Mag-Al 1200 mg/1200 mg/30 ML UDCUP ONE (23:44)
[2020-02-05] MEDS ORDERED: Lidocaine Viscous Sol 2% 15 ml UD Cup ONE (23:44)
[2020-02-05 23:51] LABS: ALT (SGPT) 75 U/L (8-55); AST (SGOT) 230 U/L (5-34); Albumin 4.2 g/dL (3.5-5.0); Alkaline Phosphatase 107 U/L (40-110); Anion Gap 21 mmol/L (10-20); BUN (Urea Nitrogen) 4 mg/dL (9.8-20.1); Bilirubin, Total 0.5 mg/dL (0.2-1.2); Calc. Creatinine Clearance 0 mL/min (70-130); Calcium 8.5 mg/dL (7.8-10.44); Carbon Dioxide 20 mmol/L (22-29); Chloride 91 mmol/L (98-107); Estimated GFR-MDRD Greater than 90; Glucose 94 mg/dL (70-105); Potassium 4.3 mmol/L (3.5-5.1); Protein, Total 8.2 g/dL (6.0-8.3); Sodium 128 mmol/L (136-145)
[2020-02-06] LABS: Lymphocytes 54 % (21-51); MDiff Complete? YES; Monocytes 20 % (0-10); Neutrophil 26 % (42-75); Platelet Count 74 thou/uL (130-400); Platelet Morphology Comment Appears Decreased; White Blood Cell (WBC) Count 3.4 thou/uL (4.8-10.8)
[2020-02-06] MEDS ORDERED: Nitroglycerin 0.4 MG TAB (25 Tab Bottle) SL PRN (00:33)
--- NOTE | 2020-02-06 00:44 | PDOC.HHP ---
Hospitalist HPI - History of Present Illness Left elbow pain History of Present Illness: PCP: Mik Devi Patient presents for evaluation of chest pain, that was present but has now resolved. HISTORIAN History provided by patient, Brought to the ER by EMS due to chest pain. She reports central chest pain that began around 5:00 this evening. She reports that it comes in waves and lasts for a few minutes at a time. She has had no s hortness of breath, nausea, vomiting, cough, or fever. Patient also complains of pain to her left elbow after a mechanical fall yesterday where she tripped on a curb. She denies hitting her head or losing consciousness. 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 ED Course: VITAL SIGNS SatFeb 05, 2020 22:32 CHARLES Knight Jennifer BP: 130/87, Pulse: 84, Resp: 16, Temp: 97.1 (Oral), Pain: 7, O2 sat: 99 on (Room Air), Time: 02/05/2020 22:32. VITAL SIGNS SatFeb 05, 2020 23:30 CHARLES Knight Jennifer BP: 129/83, Pulse: 85, Resp: 17, Pain: 7, O2 sat: 97 on (Room Air), Time: 02/05/2020 23:30. Medication administration: aspirin oral 325 mg Oral Canceled 00:26 02/06/2020 GI COCKTAIL - WHITE 40 mL Oral Given 23:47 02/05/2020 Hospitalist ROS - Review of Systems All other systems reviewed; all pertinent +/- noted in HPI/Subj - Medication Medications: amLODIPine TABLET : Strength - 5 mg : ORAL Patient Dose: 10 mg Oral once a day. Keppra oral TABLET : Strength - 750 mg : ORAL Patient Dose: 750 mg Oral 2 times a day. pantoprazole oral tablet,delayed release (DR/EC) : Strength - 40 mg : ORAL Patient Dose: 40 mg Oral once a day. Allergies: No known drug allergies Hospitalist Results - Labs Result Diagrams: 02/05/20 23:29 02/05/20 23:29 Lab results: WBC 3.4 thou/uL (4.8-10.8) L 02/05/20 23: Hgb 12.3 g/dL (12.0-16.0) 02/05/20 23: Hct 36.8 % (36.0-47.0) 02/05/20 23: MCV 96.1 fL (78.0-98.0) 02/05/20 23: Plt Count 74 thou/uL (130-400) L 02/05/20 23: Sodium 128 mmol/L (136-145) L 02/05/20 23: Potassium 4.3 mmol/L (3.5-5.1) 02/05/20: Chloride 91 mmol/L (98-107) L 02/05/20: Carbon Dioxide 20 mmol/L (22-29) L 02/05/20: BUN 4 mg/dL (9.8-20.1) L 02/05/20: Creatinine 0.61 mg/dL (0.6-1.1) 02/05/20: Glucose 94 mg/dL (70-105) 02/05/20: Calcium 8.5 mg/dL (7.8-10.44) 02/05/20: Total Bilirubin 0.5 mg/dL (0.2-1.2) 02/05/20 23: AST 230 U/L (5-34) H 02/05/20: ALT 75 U/L (8-55) H 02/05/20: Alkaline Phosphatase 107 U/L (40-110) 02/05/20 23: CK-MB (CK-2) 23.0 ng/mL (0-6.6) H* 02/05/20: Troponin I 0.029 ng/mL (< 0.028) H 02/05/20: Serum Total Protein 8.2 g/dL (6.0-8.3) 02/05/20: Albumin 4.2 g/dL (3.5-5.0) 02/05/20: - Radiology Interpretation Chest x-ray Status: image reviewed by me, pending Other Status: image reviewed by me, pending Hospitalist H&P A/P - Problem (1) Chest pain Code(s): R07.9 - CHEST PAIN, UNSPECIFIED Status: Acute (2) Hypertension Code(s): I10 - ESSENTIAL (PRIMARY) HYPERTENSION Status: Acute (3) GERD (gastroesophageal reflux disease) Code(s): K21.9 - GASTRO-ESOPHAGEAL REFLUX DISEASE WITHOUT ESOPHAGITIS Status: Acute (4) Seizure disorder Code(s): G40.909 - EPILEPSY, UNSP, NOT INTRACTABLE, WITHOUT STATUS EPILEPTICUS Status: Acute (5) Alcohol abuse Code(s): F10.10 - ALCOHOL ABUSE, UNCOMPLICATED Status: Acute (6) Anxiety and depression Code(s): F41.9 - ANXIETY DISORDER, UNSPECIFIED; F32.9 - MAJOR DEPRESSIVE DISORDER, SINGLE EPISODE, UNSPECIFIED Status: Acute (7) Bipolar disorder Code(s): F31.9 - BIPOLAR DISORDER, UNSPECIFIED Status: Acute (8) Schizophrenia Code(s): F20.9 - SCHIZOPHRENIA, UNSPECIFIED Status: Acute (9) CAD (coronary artery disease) Code(s): I25.10 - ATHSCL HEART DISEASE OF [place] CORONARY ARTERY W/O ANG PCTRS Status: Acute (10) History of recent fall Code(s): Z91.81 - HISTORY OF FALLING Status: Acute
--- NOTE | 2020-02-06 00:55 | PDOC.EVN ---
Event Note - Event Note Event Note: [id number] HP dicated
--- NOTE | 2020-02-06 01:36 | HP ---
CHIEF COMPLAINT: Chest pain. HISTORY OF PRESENT ILLNESS: Ms. Todd is a 54-year-old female with past medical history of alcoholism, cardiac arrhythmias, cardiac stents, seizures, colitis, hypertension, among others, presents to the emergency room with chest pain. The patient was given aspirin. Workup in the emergency room, patient had troponin 0.029, also patient was found to be thrombocytopenic with platelets 74, leukopenic with a WBC of 3.4, sodium is 128, BUN is 4, creatinine 0.6. The patient was given GI cocktail with improvement of her symptoms, but because of her risk factors and a detectable troponin, the patient is being admitted to the hospital for further management and to rule out acute coronary syndrome. PAST MEDICAL HISTORY: As mentioned above in history of present illness. PAST SURGICAL HISTORY: 1. Appendectomy. 2. Tubal ligation x2. 3. Left ankle surgery. 4. Cardiac stents. PAST PSYCHIATRIC HISTORY: Bipolar disorder, anxiety, schizophrenia, depression. SOCIAL HISTORY: She drinks about 5 drinks a day. She denies drug use. She denies smoking history. FAMILY HISTORY: Noncontributory. HOME MEDICATIONS: Please see home medication reconciliation form for updated medications. ALLERGIES: NO KNOWN ALLERGIES. REVIEW OF SYSTEMS: Review of 14 systems negative except what is mentioned in history of present illness. PHYSICAL EXAMINATION: GENERAL: The patient is awake, alert, in mild distress. VITAL SIGNS: Blood pressure 129/83, pulse is 85, respiratory rate is 17, oxygen saturation 97% on room air, temperature 97.1. HEAD AND NECK: Normocephalic, atraumatic. NECK: Supple. No JVD. CHEST: Fair bilateral air entry. HEART: S1, S2. Regular. ABDOMEN: Soft, nontender. Bowel sounds present. NEUROLOGIC: Awake, alert. No focal deficits. PSYCH: Unable to assess. EXTREMITIES: No clubbing or cyanosis. LABORATORY DATA: As mentioned above in history of present illness. ASSESSMENT AND PLAN: 1. Chest pain, rule out acute coronary syndrome. 2. Alcoholism/alcohol abuse. 3. Thrombocytopenia, leukopenia, ?alcoholic liver disease. 4. History of cardiac stents. 5. History of seizures. 6. Hypertension. PLAN: 1. Admit. 2. Tele monitor. 3. The patient was given already aspirin. 4. Serial troponins. 5. Counseling for alcohol drinking/abstinence while in the hospital. 6. Recheck labs including electrolytes and CBC in a.m. 7. DVT prophylaxis appropriate. 8. Expected length of stay, 1 midnight, if patient is stable and further workup negative. Job ID: [id number]
[2020-02-06 01:43] LABS: Troponin I 0.013 ng/mL (< 0.028)
[2020-02-06] MEDS: Dextrose 5 % And 0.9 % NaCl 1,000 ML IV SCH ×2 (03:13→11:57)
[2020-02-06 04:10] VITALS: BMI 24.3
[2020-02-06 06:14] LABS: Troponin I 0.019 ng/mL (< 0.028)
--- NOTE | 2020-02-06 07:36 | RAD ---
LEFT ELBOW 4 VIEWS: Date: 02/05/2020 HISTORY: Fell with elbow pain. FINDINGS: The bones appear slightly demineralized. There are no signs of fracture, dislocation, or joint effusi on. IMPRESSION: Negative left elbow. POS: [facility]
--- NOTE | 2020-02-06 07:37 | RAD ---
PORTABLE CHEST: Date: 02/05/2020 HISTORY: Chest pain status post fall. COMPARISON: 09/28/2018 exam. FINDINGS: Heart size and mediastinum are within normal limits. Lungs appear clear of any infiltrative process. No pneumothorax or rib fractures identified. IMPRESSION: No active intrathoracic disease. POS: [facility]
[2020-02-06] MEDS ORDERED: FLU VACC QS2020-21(6MOS UP)/PF 60 MCG/0.5 ML SYRINGE IM ONE (09:00)
[2020-02-06] MEDS: Famotidine 20 MG TAB PO SCH ×2 (11:16→20:30)
[2020-02-06] MEDS ORDERED: Amlodipine 10 MG TAB PO SCH (11:45)
[2020-02-06 12:03] LABS: SARS-CoV-2 MS2 Positive; SARS-CoV-2 N Gene Negative; SARS-CoV-2 S Gene Negative; SARS-CoV-2 by NAA Not Detected (NotDetected); SARS-CoV-2 orf1ab Negative
[2020-02-06 12:34] LABS: Hemoglobin 12.1 g/dL (12.0-16.0); Mean Corpuscular HGB CONC 33.7 g/dL (32.0-36.0); Mean Corpuscular Hemoglobin 32.7 pg (27.0-31.0); Mean Corpuscular Volume 96.9 fL (78.0-98.0); Mean Platelet Volume 7.8 fL (7.4-10.4); Platelet Count 65 thou/uL (130-400); RBC Distribution Width 16.6 % (11.5-14.5); Red Blood Cell (RBC) Count 3.71 mill/uL (4.20-5.40); White Blood Cell (WBC) Count 2.4 thou/uL (4.8-10.8)
[2020-02-06 12:52] LABS: Anion Gap 16 mmol/L (10-20); BUN (Urea Nitrogen) Less than 4 mg/dL (9.8-20.1); Calc. Creatinine Clearance 129 mL/min (70-130); Calcium 8.3 mg/dL (7.8-10.44); Carbon Dioxide 26 mmol/L (22-29); Chloride 98 mmol/L (98-107); Estimated GFR-MDRD Greater than 90; Glucose 105 mg/dL (70-105); Potassium 4.1 mmol/L (3.5-5.1); Sodium 136 mmol/L (136-145)
[2020-02-06 12:56] LABS: Band 5 % (5-11); Eosinophils 1 % (0-10); Lymphocytes 26 % (21-51); MDiff Complete? YES; Monocytes 17 % (0-10); Neutrophil 30 % (42-75); Platelet Morphology Comment Appears Decreased; Polychromasia SLIGHT = 2-3 cells (100X) (0-2/hpf); Reactive Lymphocytes 21 % (0-10); Target Cells SLIGHT = 2-5 cells (100X) (0-1/hpf)
--- NOTE | 2020-02-06 15:53 | PDOC.EVN ---
Event Note - Event Note Event Note: Ms Todd was admitted overnight, reports she is feeling better. Initial troponin was elevated but has trended down. Discussed case with Dr Durán and it was decided to repeat her Echocardiogram, last one was in 2019 with an EF 55-60% and order a stress test for the AM. This plan was communicated to the patient and she is in agreement. Her BP was elevated this AM and her home medications were restarted. We will recheck labs in the AM, monitor her vitals, and await the stress test results. Likely the patient will go home tomorrow if vitals remain stable and work up is negative.
[2020-02-06] MEDS: levETIRAcetam 500 MG TAB PO SCH (20:30)
[2020-02-06] MEDS ORDERED: Diazepam 5 MG TAB PO PRN (23:31)
--- NOTE | 2020-02-06 23:35 | PDOC.EVN ---
Event Note - Event Note Event Note: Nursing called, patient seems anxious. Hx 6 beers per day, last drink 24 hours. Start ASE protocol. VSS.
[2020-02-06] MEDS ORDERED: Thiamine HCl 200 MG/2 ML VIAL IM SCH (23:45)
[2020-02-07] MEDS ORDERED: Diazepam 5 MG TAB PO PRN (04:00)
[2020-02-07] MEDS ORDERED: Multivitamin W/ Minerals 1 TAB PO SCH (09:00)
[2020-02-07] MEDS ORDERED: Amlodipine 10 MG TAB PO SCH (09:00)
[2020-02-07] MEDS ORDERED: Thiamine 100 MG TAB PO SCH (09:00)
[2020-02-07] MEDS ORDERED: Magnesium Oxide 400 MG TAB PO SCH (09:00)
[2020-02-07] MEDS ORDERED: Folic Acid 1 MG TAB PO SCH (09:00)
[2020-02-07] MEDS ORDERED: Amlodipine 5 MG TAB PO SCH ×2 (09:00→14:15)
[2020-02-07] MEDS ORDERED: busPIRone HCl 10 MG TAB PO SCH (09:00)
[2020-02-07] MEDS ORDERED: Aripiprazole 10 MG TAB PO SCH (09:00)
[2020-02-07] MEDS ORDERED: Non-Formulary Item 1 EACH (Aripiprazole [Aripiprazole] 5 MG Tablet) PO SCH (09:00)
[2020-02-07] MEDS: Famotidine 20 MG TAB PO SCH (10:02)
[2020-02-07] MEDS: levETIRAcetam 500 MG TAB PO SCH (10:02)
[2020-02-07] MEDS ORDERED: ADENOSINE 60 MG/20 ML VIAL ONE (12:00)
--- NOTE | 2020-02-07 12:06 | NM ---
NM Cardiac Stress W EF WF History: Chest pain Comparison: Nuclear medicine stress test 2017 Findings: Stress and rest performed after the intravenous administration of 28.9 and 10.6 mCi technet ium 99m sestamibi, respectively. No reversible ischemia or scar. Wall motion is normal. Ejection fraction calculated at 68%. Impression: Normal nuclear medicine cardiac stress test.
[2020-02-07 12:32] VITALS: TEMP 98
--- NOTE | 2020-02-07 13:51 | DIS ---
DATE OF ADMISSION: 02/06/2020 DATE OF DISCHARGE: 02/07/2020 This is ANNETTA Garcia dictating a report for WENDY DURÁN MD. CONSULTANTS: None. PROCEDURES: 1. Chest x-ray, which showed no acute intrathoracic disease. 2. She had an elbow x-ray of the left elbow. No signs of fracture, dislocation or joint effusion. 3. She had an echocardiogram which showed an EF of 55% to 60%. Normal diastolic function. Trace mitral regurgitation, mild tricuspid regurgitation. 4. She had a nuclear stress test, which showed an EF of 68%. Impression: Normal nuclear medicine cardiac stress test. SHORT STAY SUMMARY: Ms. Todd is a very pleasant 54-year-old female who reported to the emergency room on after she had a fall and was complaining of left-sided chest pain. She has a past medical history pertinent for alcoholism, cardiac arrhythmias, cardiac stents, seizures, colitis, hypertension, bipolar, anxiety, schizophrenia, and depression and so she was admitted. She was admitted for an ACS rule out. She is thrombocytopenic with initial platelets at 74. Leukopenic with a white blood cell count of 3.4, sodium 128, BUN 4, creatinine is 0.6. She was given a GI cocktail in the emergency room, which improved her symptoms. Her initial troponin was elevated at 0.029 and CK-MB was 23. Next 2 troponins were undetectable. Initial her sodium was 128, but that improved after hydration. On discharge it was 136, potassium 4.1, BUN is still less than 4, creatinine is 0.56, magnesium is 2.1. We thought due to her symptoms when she was admitted plus her cardiac history, Dr. Durán thought it was prudent to order an echocardiogram and a stress test, findings as above. The patient is currently chest pain free. Her vital signs have remained stable and she will be discharged home. ALLERGIES: SHE NO HAS NO KNOWN DRUG ALLERGIES. HOME MEDICATIONS: 1. She will be continued on: 2. Aripiprazole at 5 mg p.o. daily. 3. BuSpar 10 mg p.o. daily. 4. Norvasc 10 mg p.o. daily. 5. Folic acid 1 mg p.o. daily, we have added. 6. We will continue the Keppra 750 mg p.o. b.i.d. She has changed PCP provider. She tells me she does have a new one and she was instructed to follow up with this provider within the next week to 10 days. DISPOSITION: Home. DISPOSITION CONDITION: Stable. DISCHARGE INSTRUCTIONS: 1. She needs to follow up with PCP within 7-10 days. 2. Continue her medications as prescribed. 3. Case discussed with Dr. Durán who agrees with plan. Job ID: [id number]
[2020-02-07 14:14] VITALS: BP 158/100
== END 2020-02-07 14:45 | disposition home or self-care (01) ==
LOC: ERS 22:18 → 2NO 02-06 00:54
PROVIDERS: ADMIT Internal Medicine; ATTEND Internal Medicine
DX: R07.9 Chest pain, unspecified (principal); M25.522 Pain in left elbow; F10.20 Alcohol dependence, uncomplicated; K52.9 Noninfective gastroenteritis and colitis, unspecified; I10 Essential (primary) hypertension; F31.9 Bipolar disorder, unspecified; F41.9 Anxiety disorder, unspecified; F20.9 Schizophrenia, unspecified; D69.6 Thrombocytopenia, unspecified; I08.1 Rheumatic disorders of both mitral and tricuspid valves; Z79.899 Other long term (current) drug therapy; Z95.5 Presence of coronary angioplasty implant and graft; W19.XXXA Unspecified fall, initial encounter
CPT/HCPCS: 36415; 71045; 78452; 80048; 80053; 82553; 83735; 84484; 85025; 87635; 90471; 90662; 93005; 93017; 93306; 94760; 96365; 96366; 96372; 96375; A9500; G0008; G0378; J0153; J3411; J3475; J3490; U0003

== ENCOUNTER 2020-05-10 00:09 | Emergency (ER) | payer BC ==
[2020-05-10 00:46] LABS: Bilirubin Negative (Negative); Blood, Urine Negative (Negative); Clarity Turbid (Clear); Glucose, Urine (Dipstick) Normal (Negative); Ketone, Urine Negative (Negative); Leukocyte 500 Leu/uL (Negative); Nitrite Negative (Negative); Protein, Urine (Dipstick) Negative (Neg-Trace); RBC/HPF 0-3 HPF (0-3); Specific Gravity, Urine 1.002 (1.002-1.036); Squamous Epithelial 0-3 HPF (0-3); Urobilinogen Normal mg/dL (Less than 2)
[2020-05-10 00:47] LABS: Bacteria/HPF 1+ HPF (None Seen)
[2020-05-10] MEDS ORDERED: Ondansetron PF 4 MG/2 ML Vial ONE (00:58)
[2020-05-10 00:59] LABS: #Basophils 0.1 thou/uL (0.0-0.2); #Eosinphils 0.2 thou/uL (0.0-0.7); #Lymphocytes 2.9 thou/uL (1.20-3.40); #Monocytes 0.4 thou/uL (0.11-0.59); #Neutrophils 4.2 thou/uL (1.40-6.50); %Basophils 1.5 % (0.0-1.0); %Eosinophils 2.2 % (0.0-10.0); %Lymphocytes 37.4 % (21.0-51.0); %Monocytes 5.1 % (0.0-10.0); %Neutrophils 53.9 % (42.0-75.0); Mean Corpuscular HGB CONC 33.7 g/dL (32.0-36.0); Mean Corpuscular Hemoglobin 31.8 pg (27.0-31.0); Mean Corpuscular Volume 94.4 fL (78.0-98.0); Platelet Count 194 thou/uL (130-400); RBC Distribution Width 13.6 % (11.5-14.5); Red Blood Cell (RBC) Count 4.09 mill/uL (4.20-5.40); White Blood Cell (WBC) Count 7.8 thou/uL (4.8-10.8)
[2020-05-10 01:21] LABS: ALT (SGPT) 7 U/L (8-55); AST (SGOT) 22 U/L (5-34); Albumin 3.8 g/dL (3.5-5.0); Alkaline Phosphatase 103 U/L (40-110); Anion Gap 18 mmol/L (10-20); BUN (Urea Nitrogen) 4 mg/dL (9.8-20.1); Bilirubin, Total 0.4 mg/dL (0.2-1.2); Calc. Creatinine Clearance 0 mL/min (70-130); Calcium 8.8 mg/dL (7.8-10.44); Carbon Dioxide 22 mmol/L (22-29); Chloride 100 mmol/L (98-107); Globulin 4.9 g/dL (2.4-3.5); Glucose 85 mg/dL (70-105); Potassium 3.7 mmol/L (3.5-5.1); Protein, Total 8.7 g/dL (6.0-8.3); Sodium 136 mmol/L (136-145)
[2020-05-10] MEDS ORDERED: Acetaminophen 500 MG TAB ONE ×2 (01:49)
== END 2020-05-10 02:09 | disposition home or self-care (01) ==
LOC: ERS 00:09
DX: M54.9 Dorsalgia, unspecified (principal); R11.2 Nausea with vomiting, unspecified; R10.84 Generalized abdominal pain; I10 Essential (primary) hypertension; I49.9 Cardiac arrhythmia, unspecified; Z79.899 Other long term (current) drug therapy
CPT/HCPCS: 36415; 80053; 81003; 81015; 85025; 96374; J2405

== ENCOUNTER 2020-10-24 17:09 | Emergency (ER) | payer MEDICAID | END 2020-10-24 18:32 | disposition left against medical advice (07) | LOC: ERS 17:09 | DX: Z53.21 Procedure and treatment not carried out due to patient leaving prior to being seen by health care provider (principal) ==

== ENCOUNTER 2021-01-06 12:38 | Outpatient (CLI) | payer BC, MEDICAID | END 2021-01-06 12:39 | disposition home or self-care (01) | LOC: RAD 12:38 | DX: M47.16 Other spondylosis with myelopathy, lumbar region (principal) | CPT/HCPCS: 72100 ==

== ENCOUNTER 2021-03-01 21:12 | Emergency (ER) | payer BC, MEDICAID ==
[2021-03-01 22:59] LABS: Hemoglobin 13.1 g/dL (12.0-16.0); Mean Corpuscular HGB CONC 34.6 g/dL (32.0-36.0); Mean Corpuscular Hemoglobin 33.4 pg (27.0-31.0); Mean Corpuscular Volume 96.5 fL (78.0-98.0); Mean Platelet Volume 7.4 fL (7.4-10.4); Platelet Count 93 thou/uL (130-400); RBC Distribution Width 15.4 % (11.5-14.5); Red Blood Cell (RBC) Count 3.92 mill/uL (4.20-5.40); White Blood Cell (WBC) Count 3.1 thou/uL (4.8-10.8)
[2021-03-01 23:05] LABS: ALT (SGPT) 56 U/L (8-55); AST (SGOT) 320 U/L (5-34); Albumin 3.9 g/dL (3.5-5.0); Alkaline Phosphatase 138 U/L (40-110); Anion Gap 17 mmol/L (10-20); BUN (Urea Nitrogen) Less than 4 mg/dL (9.8-20.1); Bilirubin, Total 0.6 mg/dL (0.2-1.2); Calc. Creatinine Clearance 0 mL/min (70-130); Calcium 8.7 mg/dL (7.8-10.44); Carbon Dioxide 25 mmol/L (22-29); Chloride 89 mmol/L (98-107); Globulin 4.1 g/dL (2.4-3.5); Glucose 101 mg/dL (70-105); Potassium 3.6 mmol/L (3.5-5.1); Sodium 127 mmol/L (136-145)
[2021-03-01] MEDS ORDERED: Acetaminophen 500 MG TAB ONE (23:29)
[2021-03-01 23:57] LABS: Lymphocytes 63 % (21-51); MDiff Complete? YES; Monocytes 8 % (0-10); Neutrophil 27 % (42-75); Platelet Morphology Comment Appears Decreased; RBC Morphology Normal; Reactive Lymphocytes 2 % (0-10)
== END 2021-03-01 23:55 | disposition home or self-care (01) ==
LOC: ERS 21:12
DX: R51.9 Headache, unspecified (principal); I10 Essential (primary) hypertension; R56.9 Unspecified convulsions; Z79.899 Other long term (current) drug therapy
CPT/HCPCS: 36415; 70450; 72125; 80053; 85025

== ENCOUNTER 2021-09-11 14:14 | Emergency (ER) | payer MEDICARE, OTHER | END 2021-09-11 15:43 | disposition home or self-care (01) | LOC: ERS 14:14 | DX: M54.50 Low back pain, unspecified (principal); G89.29 Other chronic pain; I10 Essential (primary) hypertension | CPT/HCPCS: 99283 ==

== ENCOUNTER 2021-09-14 10:26 | Emergency (ER) | payer MEDICARE, MEDICAID | END 2021-09-14 11:41 | disposition home or self-care (01) | LOC: ERS 10:26 | DX: S80.02XA Contusion of left knee, initial encounter (principal); S80.01XA Contusion of right knee, initial encounter; I10 Essential (primary) hypertension; Z79.899 Other long term (current) drug therapy; W18.30XA Fall on same level, unspecified, initial encounter; Y92.009 Unspecified place in unspecified non-institutional (private) residence as the place of occurrence of the external cause ==

== ENCOUNTER 2021-09-14 16:37 | Inpatient (IN) | payer MEDICARE, MEDICAID ==
[~2021-09-14 16:37] MED LIST: Iopamidol-370 76% 500 ML 1 ML ONE
[2021-09-14 17:49] LABS: #Basophils 0.1 thou/uL (0.0-0.2); #Eosinphils 0.1 thou/uL (0.0-0.7); #Lymphocytes 1.9 thou/uL (1.20-3.40); #Monocytes 0.9 thou/uL (0.11-0.59); #Neutrophils 5.6 thou/uL (1.40-6.50); %Eosinophils 0.7 % (0.0-10.0); %Lymphocytes 22.4 % (21.0-51.0); %Monocytes 10.1 % (0.0-10.0); %Neutrophils 65.7 % (42.0-75.0); Hemoglobin 12.9 g/dL (12.0-16.0); Mean Corpuscular HGB CONC 32.7 g/dL (32.0-36.0); Mean Corpuscular Hemoglobin 34.8 pg (27.0-31.0); Platelet Count 91 thou/uL (130-400); RBC Distribution Width 13.8 % (11.5-14.5); Red Blood Cell (RBC) Count 3.73 mill/uL (4.20-5.40); White Blood Cell (WBC) Count 8.6 thou/uL (4.8-10.8)
[2021-09-14 18:03] LABS: ALT (SGPT) 135 U/L (8-55); AST (SGOT) 625 U/L (5-34); Albumin 2.8 g/dL (3.5-5.0); Alkaline Phosphatase 213 U/L (40-110); Anion Gap 17 mmol/L (10-20); BUN (Urea Nitrogen) 5 mg/dL (9.8-20.1); Bilirubin, Total 7.7 mg/dL (0.2-1.2); Calc. Creatinine Clearance 0 mL/min (70-130); Calcium 8.3 mg/dL (7.8-10.44); Carbon Dioxide 24 mmol/L (22-29); Chloride 90 mmol/L (98-107); Globulin 4.1 g/dL (2.4-3.5); Glucose 95 mg/dL (70-105); Lipase 38 U/L (8-78); Potassium 4.2 mmol/L (3.5-5.1); Protein, Total 6.9 g/dL (6.0-8.3); Sodium 127 mmol/L (136-145)
[2021-09-14 18:06] LABS: MDiff Complete? YES; Macrocytosis SLIGHT = 6-15 cells (100X) (0-5/hpf); Platelet Morphology Comment Appears Decreased; Polychromasia SLIGHT = 2-3 cells (100X) (0-2/hpf); Target Cells SLIGHT = 2-5 cells (100X) (0-1/hpf)
[2021-09-14 18:23] LABS: Bacteria/HPF 4+ HPF (None Seen); Bilirubin 2+ (Negative); Blood, Urine Trace (Negative); Glucose, Urine (Dipstick) Normal (Negative); Ketone, Urine 10 mg/dL (Negative); Leukocyte 25 Leu/uL (Negative); Nitrite Negative (Negative); Protein, Urine (Dipstick) 10 mg/dL (Neg-Trace); RBC/HPF 0-3 HPF (0-3); Specific Gravity, Urine 1.012 (1.002-1.036); Squamous Epithelial 0-3 HPF (0-3); Urobilinogen Greater than 12 mg/dL (Less than 2)
[2021-09-14 18:24] LABS: Clarity Cloudy (Clear)
[2021-09-14 21:02] LABS: Lactic Acid 1.9 mmol/L (0.5-2.2)
[2021-09-14] MEDS ORDERED: hydrALAZINE 20 MG/ML VIAL SLOW IVP PRN (21:17)
[2021-09-14] MEDS ORDERED: Lorazepam 1 MG TAB PO PRN (21:18)
[2021-09-14] MEDS ORDERED: Ondansetron PF 4 MG/2 ML Vial IVP PRN (21:18)
[2021-09-14] MEDS ORDERED: Lorazepam 2 MG/ML VIAL IM PRN (21:18)
[2021-09-14] MEDS ORDERED: Ondansetron ODT 4 MG TAB PO PRN (21:18)
[2021-09-14] MEDS ORDERED: D5 LR w/20 mEq KCL 1,000 ML IV SCH (21:30)
[2021-09-14] MEDS ORDERED: Electrolyte Replacement Protocol 1 EACH FS PRN (21:30)
[2021-09-14 21:47] LABS: CRP (Inflammatory) 2.77 mg/dL (= or < 0.5); Magnesium 1.7 mg/dL (1.6-2.6); Phosphorus 1.5 mg/dL (2.3-4.7)
[2021-09-14] MEDS: Lorazepam 1 MG TAB PO SCH (22:16)
[2021-09-14] MEDS: Cefepime 1 GM in Sodium Chloride 0.9% 100 ML IVPB SCH (22:16)
[2021-09-14] MEDS: Thiamine HCl 200 MG/2 ML VIAL SLOW IVP SCH (22:16)
[2021-09-14] MEDS: Morphine 2 MG/ML VIAL SLOW IVP PRN (22:42)
[2021-09-14] MEDS ORDERED: Magnesium 2 GM/50 ML(in water) 2 GM in Premix Bag 1 BAG IVPB SCH (23:59)
[2021-09-14] MEDS ORDERED: Potassium Phosphate 30 MMOL in Sodium Chloride 0.9% 500 ML IVPB SCH (23:59)
[2021-09-15 00:19] VITALS: BMI 25.2
[2021-09-15] MEDS: Lorazepam 1 MG TAB PO SCH ×4 (04:25→20:46)
[2021-09-15] MEDS: Potassium Chloride 20 MEQ, Admixture Fee 1 EACH in Dextrose 5%-Lactated Ringers 1,000 ML IV SCH ×2 (05:02→14:25)
[2021-09-15 06:17] LABS: Hemoglobin 10.4 g/dL (12.0-16.0); Mean Corpuscular HGB CONC 32.8 g/dL (32.0-36.0); Mean Corpuscular Hemoglobin 35.5 pg (27.0-31.0); Platelet Count 87 thou/uL (130-400); RBC Distribution Width 13.8 % (11.5-14.5); Red Blood Cell (RBC) Count 2.92 mill/uL (4.20-5.40); White Blood Cell (WBC) Count 5.4 thou/uL (4.8-10.8)
[2021-09-15 06:32] LABS: ALT (SGPT) 99 U/L (8-55); AST (SGOT) 384 U/L (5-34); Albumin 2.2 g/dL (3.5-5.0); Alkaline Phosphatase 163 U/L (40-110); Anion Gap 13 mmol/L (10-20); BUN (Urea Nitrogen) 6 mg/dL (9.8-20.1); Calc. Creatinine Clearance 153 mL/min (70-130); Calcium 7.3 mg/dL (7.8-10.44); Carbon Dioxide 26 mmol/L (22-29); Chloride 97 mmol/L (98-107); Globulin 3.1 g/dL (2.4-3.5); Glucose 67 mg/dL (70-105); Potassium 3.3 mmol/L (3.5-5.1); Protein, Total 5.3 g/dL (6.0-8.3); Sodium 133 mmol/L (136-145)
[2021-09-15 06:36] LABS: Troponin I 0.022 ng/mL (< 0.028)
[2021-09-15 08:00] LABS: #Basophils 0.1 thou/uL (0.0-0.2); #Eosinphils 0.1 thou/uL (0.0-0.7); #Lymphocytes 1.4 thou/uL (1.20-3.40); #Monocytes 0.6 thou/uL (0.11-0.59); #Neutrophils 3.2 thou/uL (1.40-6.50); %Eosinophils 2.2 % (0.0-10.0); %Lymphocytes 26.2 % (21.0-51.0); %Monocytes 11.1 % (0.0-10.0); %Neutrophils 59.4 % (42.0-75.0)
[2021-09-15 08:33] LABS: Magnesium 2.3 mg/dL (1.6-2.6)
[2021-09-15] MEDS: Folic Acid 1 MG TAB PO SCH (08:52)
[2021-09-15] MEDS: Multivit, Therapeutic 1 TAB PO SCH (08:52)
[2021-09-15] MEDS: Potassium Chloride 20 MEQ TAB PO SCH ×2 (08:52→12:37)
[2021-09-15] MEDS: Famotidine 20 MG TAB PO SCH ×2 (08:53→20:46)
[2021-09-15] MEDS: Potassium Chloride 10 MEQ in Premix Bag 1 BAG IVPB SCH ×2 (10:42→13:10)
[2021-09-15] MEDS: Cefepime 1 GM in Sodium Chloride 0.9% 100 ML IVPB SCH ×2 (12:37→23:55)
[2021-09-15 15:14] LABS: Albumin 2.2 g/dL (3.5-5.0)
[2021-09-15 15:15] LABS: Chloride 97 mmol/L (98-107); Potassium 3.8 mmol/L (3.5-5.1); Sodium 130 mmol/L (136-145)
[2021-09-15 15:16] LABS: Calcium 7.4 mg/dL (7.8-10.44)
[2021-09-15 15:17] LABS: Globulin 3.6 g/dL (2.4-3.5); Glucose 106 mg/dL (70-105); Protein, Total 5.8 g/dL (6.0-8.3)
[2021-09-15 15:18] LABS: Anion Gap 13 mmol/L (10-20); Bilirubin, Total 5.7 mg/dL (0.2-1.2); Carbon Dioxide 24 mmol/L (22-29)
[2021-09-15 15:19] LABS: Alkaline Phosphatase 171 U/L (40-110)
[2021-09-15 15:20] LABS: Calc. Creatinine Clearance 147 mL/min (70-130)
[2021-09-15 15:21] LABS: BUN (Urea Nitrogen) 5 mg/dL (9.8-20.1)
[2021-09-15 15:22] LABS: ALT (SGPT) 94 U/L (8-55); AST (SGOT) 340 U/L (5-34)
[2021-09-15] MEDS: Thiamine HCl 200 MG/2 ML VIAL SLOW IVP SCH (20:47)
[2021-09-15] MEDS ORDERED: Lorazepam 1 MG TAB PO PRN (21:18)
[2021-09-16] MEDS: Cefepime 1 GM in Sodium Chloride 0.9% 100 ML IVPB SCH ×3 (00:42→22:06)
[2021-09-16] MEDS: Lorazepam 1 MG TAB PO SCH ×3 (04:41→16:10)
[2021-09-16 07:23] LABS: #Eosinphils 0.1 thou/uL (0.0-0.7); #Lymphocytes 1.8 thou/uL (1.20-3.40); #Monocytes 0.6 thou/uL (0.11-0.59); #Neutrophils 2.5 thou/uL (1.40-6.50); %Basophils 0.8 % (0.0-1.0); %Eosinophils 2.3 % (0.0-10.0); %Lymphocytes 36.1 % (21.0-51.0); %Monocytes 11.5 % (0.0-10.0); %Neutrophils 49.3 % (42.0-75.0); Hemoglobin 10.1 g/dL (12.0-16.0); Mean Corpuscular HGB CONC 32.3 g/dL (32.0-36.0); Mean Corpuscular Hemoglobin 35.2 pg (27.0-31.0); Mean Platelet Volume 7.6 fL (7.4-10.4); Platelet Count 110 thou/uL (130-400); RBC Distribution Width 14.1 % (11.5-14.5); Red Blood Cell (RBC) Count 2.86 mill/uL (4.20-5.40); White Blood Cell (WBC) Count 5.1 thou/uL (4.8-10.8)
[2021-09-16 07:45] LABS: ALT (SGPT) 81 U/L (8-55); AST (SGOT) 244 U/L (5-34); Albumin 2.1 g/dL (3.5-5.0); Alkaline Phosphatase 156 U/L (40-110); Anion Gap 11 mmol/L (10-20); BUN (Urea Nitrogen) 4 mg/dL (9.8-20.1); Calc. Creatinine Clearance 159 mL/min (70-130); Calcium 7.6 mg/dL (7.8-10.44); Carbon Dioxide 27 mmol/L (22-29); Chloride 99 mmol/L (98-107); Globulin 3.4 g/dL (2.4-3.5); Glucose 74 mg/dL (70-105); Magnesium 1.8 mg/dL (1.6-2.6); Phosphorus 2.5 mg/dL (2.3-4.7); Potassium 3.5 mmol/L (3.5-5.1); Protein, Total 5.5 g/dL (6.0-8.3); Sodium 133 mmol/L (136-145)
[2021-09-16] MEDS ORDERED: Potassium Chloride 20 MEQ TAB PO SCH (09:00)
[2021-09-16] MEDS ORDERED: Magnesium 2 GM/50 ML(in water) 2 GM in Premix Bag 1 BAG IVPB SCH (09:00)
[2021-09-16] MEDS: Famotidine 20 MG TAB PO SCH ×2 (09:48→20:18)
[2021-09-16] MEDS: Potassium Chloride 20 MEQ TAB PO SCH ×2 (09:48→16:10)
[2021-09-16] MEDS: Magnesium Oxide 400 MG TAB PO SCH (09:48)
[2021-09-16] MEDS: Ergocalciferol 1.25 MG(50,000 UNITS) CAP PO SCH (09:48)
[2021-09-16] MEDS: Cholecalciferol (Vitamin D3) 400 UNITS TAB PO SCH (09:48)
[2021-09-16] MEDS: Multivit, Therapeutic 1 TAB PO SCH (09:49)
[2021-09-16] MEDS: Folic Acid 1 MG TAB PO SCH (09:49)
[2021-09-16] MEDS: levETIRAcetam 500 MG TAB PO SCH (20:18)
[2021-09-16] MEDS ORDERED: Lorazepam 1 MG TAB PO PRN (21:18)
[2021-09-16] MEDS: Lorazepam 0.5 MG TAB PO SCH (21:58)
[2021-09-16] MEDS: Thiamine HCl 200 MG/2 ML VIAL SLOW IVP SCH (21:59)
[2021-09-17] MEDS: Lorazepam 0.5 MG TAB PO SCH ×3 (03:15→16:04)
[2021-09-17] MEDS ORDERED: Potassium Chloride 20 MEQ TAB PO SCH (08:45)
[2021-09-17] MEDS: Cholecalciferol (Vitamin D3) 400 UNITS TAB PO SCH (09:20)
[2021-09-17] MEDS: Potassium Chloride 20 MEQ TAB PO SCH ×2 (09:21→16:04)
[2021-09-17] MEDS: Amlodipine 5 MG TAB PO SCH (09:21)
[2021-09-17] MEDS: Multivit, Therapeutic 1 TAB PO SCH (09:21)
[2021-09-17] MEDS: levETIRAcetam 500 MG TAB PO SCH ×2 (09:21→21:14)
[2021-09-17] MEDS: Magnesium Oxide 400 MG TAB PO SCH (09:21)
[2021-09-17] MEDS: Folic Acid 1 MG TAB PO SCH (09:21)
[2021-09-17] MEDS: Famotidine 20 MG TAB PO SCH (09:22)
[2021-09-17 10:10] LABS: ALT (SGPT) 77 U/L (8-55); AST (SGOT) 181 U/L (5-34); Albumin 2.4 g/dL (3.5-5.0); Alkaline Phosphatase 166 U/L (40-110); Anion Gap 10 mmol/L (10-20); BUN (Urea Nitrogen) Less than 4 mg/dL (9.8-20.1); Bilirubin, Total 5.2 mg/dL (0.2-1.2); Calc. Creatinine Clearance 144 mL/min (70-130); Calcium 8.4 mg/dL (7.8-10.44); Carbon Dioxide 31 mmol/L (22-29); Chloride 97 mmol/L (98-107); Glucose 80 mg/dL (70-105); Potassium 4.2 mmol/L (3.5-5.1); Protein, Total 6.4 g/dL (6.0-8.3); Sodium 134 mmol/L (136-145)
[2021-09-17] MEDS: Cefepime 1 GM in Sodium Chloride 0.9% 100 ML IVPB SCH ×2 (11:47→22:24)
[2021-09-17] MEDS ORDERED: Ondansetron HCl/PF 4 MG/2 ML Vial IVP PRN (14:04)
[2021-09-17] MEDS ORDERED: Promethazine HCl 25 MG/ML VIAL IM PRN (14:04)
[2021-09-17] MEDS ORDERED: Promethazine HCl 25 MG/ML VIAL IVPB PRN (14:04)
[2021-09-17] MEDS ORDERED: PROPOFOL 200 MG/20 ML VIAL ONE (14:23)
[2021-09-17] MEDS ORDERED: Lidocaine 1% PF 5 ML VIAL ONE (14:23)
[2021-09-17] MEDS: Pantoprazole 40 MG VIAL IVP SCH (21:13)
[2021-09-17] MEDS: Thiamine 100 MG TAB PO SCH (21:13)
[2021-09-17] MEDS ORDERED: Lorazepam 0.5 MG TAB PO PRN (21:18)
[2021-09-18] MEDS: Levothyroxine Sodium 75 MCG TAB PO SCH (05:42)
[2021-09-18 07:56] LABS: ALT (SGPT) 59 U/L (8-55); AST (SGOT) 132 U/L (5-34); Albumin 2.1 g/dL (3.5-5.0); Alkaline Phosphatase 145 U/L (40-110); Anion Gap 13 mmol/L (10-20); BUN (Urea Nitrogen) 4 mg/dL (9.8-20.1); Bilirubin, Total 4.2 mg/dL (0.2-1.2); Calc. Creatinine Clearance 150 mL/min (70-130); Calcium 8.1 mg/dL (7.8-10.44); Carbon Dioxide 21 mmol/L (22-29); Chloride 102 mmol/L (98-107); Globulin 3.9 g/dL (2.4-3.5); Glucose 73 mg/dL (70-105); Sodium 131 mmol/L (136-145)
[2021-09-18] MEDS: Folic Acid 1 MG TAB PO SCH (08:39)
[2021-09-18] MEDS: Amlodipine 5 MG TAB PO SCH (08:39)
[2021-09-18] MEDS: Multivit, Therapeutic 1 TAB PO SCH (08:40)
[2021-09-18] MEDS: Magnesium Oxide 400 MG TAB PO SCH (08:40)
[2021-09-18] MEDS: levETIRAcetam 500 MG TAB PO SCH ×2 (08:40→21:31)
[2021-09-18] MEDS: Pantoprazole 40 MG VIAL IVP SCH ×2 (08:40→21:32)
[2021-09-18] MEDS ORDERED: Potassium Chloride 20 MEQ TAB PO SCH (09:00)
[2021-09-18] MEDS: Cefepime 1 GM in Sodium Chloride 0.9% 100 ML IVPB SCH ×2 (10:56→23:57)
[2021-09-18] MEDS: Sodium Chloride 1 GM TAB PO SCH ×2 (16:02→21:31)
[2021-09-18 17:25] LABS: Phosphorus 2.7 mg/dL (2.3-4.7)
[2021-09-18] MEDS: Albumin 25% 25 GM/100 ML BOT IVPB SCH ×2 (17:48→23:57)
[2021-09-18] MEDS: Thiamine 100 MG TAB PO SCH (21:31)
[2021-09-19] MEDS: Levothyroxine Sodium 75 MCG TAB PO SCH (05:48)
[2021-09-19] MEDS ORDERED: Albumin 25% 25 GM/100 ML BOT IVPB SCH (08:00)
[2021-09-19 08:39] LABS: ALT (SGPT) 44 U/L (8-55); AST (SGOT) 86 U/L (5-34); Albumin 2.9 g/dL (3.5-5.0); Alkaline Phosphatase 130 U/L (40-110); Bilirubin, Direct 3.5 mg/dL (0.1-0.3); Bilirubin, Total 5.3 mg/dL (0.2-1.2); Protein, Total 6.1 g/dL (6.0-8.3)
[2021-09-19] MEDS: Folic Acid 1 MG TAB PO SCH (08:51)
[2021-09-19] MEDS: Multivit, Therapeutic 1 TAB PO SCH (08:51)
[2021-09-19] MEDS: Amlodipine 5 MG TAB PO SCH (08:51)
[2021-09-19] MEDS: levETIRAcetam 500 MG TAB PO SCH ×2 (08:51→20:25)
[2021-09-19] MEDS: Sodium Chloride 1 GM TAB PO SCH ×3 (08:51→20:25)
[2021-09-19] MEDS: Magnesium Oxide 400 MG TAB PO SCH (08:52)
[2021-09-19] MEDS: Pantoprazole 40 MG VIAL IVP SCH ×2 (08:52→20:26)
[2021-09-19 08:54] LABS: HBCM Index 0.11 S/CO (0-0.79); HBSAg Index 0.28 S/CO (0-0.99); Hep A IgM AB Non-Reactive (NonReactive); Hep A IgM S/CO 0.39 S/CO (0-0.79); Hep B Surf Ag Non-Reactive S/CO (NonReactive); Hep C IgG Ab Non-Reactive (NonReactive); Hep C Index 0.14 S/CO (0-0.79); Hepatitis B Core IgM Abs Non-Reactive (NonReactive)
[2021-09-19] MEDS: Cefepime 1 GM in Sodium Chloride 0.9% 100 ML IVPB SCH ×2 (11:04→22:11)
[2021-09-19] MEDS ORDERED: Potassium Chloride 20 MEQ TAB PO SCH (13:30)
[2021-09-19] MEDS ORDERED: Morphine 2 MG/ML VIAL ONE (15:29)
[2021-09-19] MEDS: Thiamine 100 MG TAB PO SCH (20:25)
[2021-09-20] MEDS: Levothyroxine Sodium 75 MCG TAB PO SCH (05:12)
[2021-09-20 06:25] LABS: INR-International Normal Ratio 1.3; PTT 29.6 sec (22.9-36.1); Prothrombin Time 16.1 sec (12.0-14.7)
[2021-09-20 06:55] LABS: ALT (SGPT) 37 U/L (8-55); AST (SGOT) 65 U/L (5-34); Alkaline Phosphatase 141 U/L (40-110); Anion Gap 10 mmol/L (10-20); BUN (Urea Nitrogen) 7 mg/dL (9.8-20.1); Bilirubin, Total 4.3 mg/dL (0.2-1.2); Calc. Creatinine Clearance 141 mL/min (70-130); Calcium 8.6 mg/dL (7.8-10.44); Carbon Dioxide 28 mmol/L (22-29); Chloride 98 mmol/L (98-107); Globulin 3.6 g/dL (2.4-3.5); Glucose 89 mg/dL (70-105); Iron Binding Capacity, Total 90 mcg/dL (265-497); Lipase 52 U/L (8-78); Phosphorus 2.7 mg/dL (2.3-4.7); Potassium 4.2 mmol/L (3.5-5.1); Protein, Total 6.6 g/dL (6.0-8.3); Sodium 132 mmol/L (136-145)
[2021-09-20 06:56] LABS: Eosinophils 1 % (0-10); Hemoglobin 10.9 g/dL (12.0-16.0); Lymphocytes 40 % (21-51); MDiff Complete? YES; Macrocytosis SLIGHT = 6-15 cells (100X) (0-5/hpf); Mean Corpuscular Hemoglobin 35.5 pg (27.0-31.0); Mean Platelet Volume 7.7 fL (7.4-10.4); Monocytes 15 % (0-10); Neutrophil 42 % (42-75); Platelet Count 196 thou/uL (130-400); RBC Distribution Width 15.1 % (11.5-14.5); Reactive Lymphocytes 1 % (0-10); Red Blood Cell (RBC) Count 3.06 mill/uL (4.20-5.40); Target Cells SLIGHT = 2-5 cells (100X) (0-1/hpf); White Blood Cell (WBC) Count 6.9 thou/uL (4.8-10.8)
[2021-09-20] MEDS: Amlodipine 5 MG TAB PO SCH (08:31)
[2021-09-20] MEDS: Multivit, Therapeutic 1 TAB PO SCH (08:31)
[2021-09-20] MEDS: Folic Acid 1 MG TAB PO SCH (08:31)
[2021-09-20] MEDS: Magnesium Oxide 400 MG TAB PO SCH (08:31)
[2021-09-20] MEDS: Potassium Chloride 20 MEQ TAB PO SCH (08:31)
[2021-09-20] MEDS: Sodium Chloride 1 GM TAB PO SCH ×3 (08:31→20:23)
[2021-09-20] MEDS: levETIRAcetam 500 MG TAB PO SCH ×2 (08:31→20:08)
[2021-09-20] MEDS: Pantoprazole 40 MG VIAL IVP SCH ×2 (08:32→20:09)
[2021-09-20] MEDS: Cefepime 1 GM in Sodium Chloride 0.9% 100 ML IVPB SCH ×2 (11:34→23:27)
[2021-09-20] MEDS ORDERED: fentaNYL Citrate/PF 100 MCG/2 ML SYRINGE ONE (13:34)
[2021-09-20] MEDS ORDERED: EPINEPHrine 1 MG/ML AMP ONE (13:40)
[2021-09-20] MEDS ORDERED: Bupivacaine 0.25% HCL 30 ML VIAL ONE (13:40)
[2021-09-20] MEDS ORDERED: Iopamidol 15 ML ONE (13:45)
[2021-09-20] MEDS ORDERED: PHENYLEPHRINE-NS 100 MCG/ML 10 ML SYRINGE ONE (14:53)
[2021-09-20] MEDS ORDERED: Glycopyrrolate 0.2 MG/ML 5 ML SYRINGE ONE (14:53)
[2021-09-20] MEDS ORDERED: PROPOFOL 200 MG/20 ML VIAL ONE (14:53)
[2021-09-20] MEDS ORDERED: Ondansetron PF 4 MG/2 ML Vial ONE (14:53)
[2021-09-20] MEDS ORDERED: Rocuronium Bromide 10 MG/ML (10ML VIAL) ONE (14:53)
[2021-09-20] MEDS ORDERED: Lidocaine 1% PF 5 ML VIAL ONE (14:53)
[2021-09-20] MEDS ORDERED: Iopamidol 30 ML ONE (15:30)
[2021-09-20] MEDS ORDERED: ePHEDrine Sulfate 50 MG/10 ML VIAL ONE (17:21)
[2021-09-20] MEDS: Morphine 2 MG/ML VIAL SLOW IVP PRN (18:46)
[2021-09-20] MEDS ORDERED: Ketorolac Tromethamine 30 MG/ML VIAL IVP SCH (20:00)
[2021-09-20] MEDS: Thiamine 100 MG TAB PO SCH (20:08)
[2021-09-21] MEDS: Morphine 2 MG/ML VIAL SLOW IVP PRN (02:43)
[2021-09-21] MEDS: HYDROcodone/Acetaminophen 10/325 mg Tablet PO PRN ×2 (04:27→20:41)
[2021-09-21] MEDS: Levothyroxine Sodium 75 MCG TAB PO SCH (05:06)
[2021-09-21 06:57] LABS: Hemoglobin 10.9 g/dL (12.0-16.0); Mean Corpuscular HGB CONC 32.6 g/dL (32.0-36.0); Mean Corpuscular Hemoglobin 34.9 pg (27.0-31.0); Mean Platelet Volume 7.9 fL (7.4-10.4); Platelet Count 261 thou/uL (130-400); RBC Distribution Width 15.4 % (11.5-14.5); Red Blood Cell (RBC) Count 3.12 mill/uL (4.20-5.40); White Blood Cell (WBC) Count 13.5 thou/uL (4.8-10.8)
[2021-09-21 07:33] LABS: ALT (SGPT) 58 U/L (8-55); AST (SGOT) 149 U/L (5-34); Albumin 2.9 g/dL (3.5-5.0); Alkaline Phosphatase 138 U/L (40-110); Anion Gap 15 mmol/L (10-20); BUN (Urea Nitrogen) 10 mg/dL (9.8-20.1); Bilirubin, Total 8.4 mg/dL (0.2-1.2); Calc. Creatinine Clearance 118 mL/min (70-130); Calcium 8.5 mg/dL (7.8-10.44); Carbon Dioxide 23 mmol/L (22-29); Chloride 99 mmol/L (98-107); Globulin 3.6 g/dL (2.4-3.5); Glucose 71 mg/dL (70-105); Magnesium 1.4 mg/dL (1.6-2.6); Phosphorus 3.8 mg/dL (2.3-4.7); Potassium 4.3 mmol/L (3.5-5.1); Protein, Total 6.5 g/dL (6.0-8.3); Sodium 133 mmol/L (136-145)
[2021-09-21] MEDS ORDERED: Magnesium 2 GM/50 ML(in water) 2 GM in Premix Bag 1 BAG IVPB SCH ×2 (07:45→09:00)
[2021-09-21] MEDS: Amlodipine 5 MG TAB PO SCH (08:09)
[2021-09-21] MEDS: Pantoprazole 40 MG VIAL IVP SCH (08:09)
[2021-09-21] MEDS: Potassium Chloride 20 MEQ TAB PO SCH (08:09)
[2021-09-21] MEDS: Folic Acid 1 MG TAB PO SCH (08:10)
[2021-09-21] MEDS: Sodium Chloride 1 GM TAB PO SCH ×3 (08:10→20:42)
[2021-09-21] MEDS: levETIRAcetam 500 MG TAB PO SCH ×2 (08:10→20:42)
[2021-09-21] MEDS: Multivit, Therapeutic 1 TAB PO SCH (08:10)
[2021-09-21] MEDS: Magnesium Oxide 400 MG TAB PO SCH (08:10)
[2021-09-21] MEDS ORDERED: Iopamidol 30 ML ONE (09:48)
[2021-09-21] MEDS ORDERED: Indomethacin 50 MG SUPP ONE (09:49)
[2021-09-21] MEDS ORDERED: Fentanyl 100 MCG/2 ML VIAL ONE (12:00)
[2021-09-21] MEDS ORDERED: Rocuronium Bromide 10 MG/ML (10ML VIAL) ONE (12:05)
[2021-09-21] MEDS ORDERED: PROPOFOL 200 MG/20 ML VIAL ONE (12:05)
[2021-09-21] MEDS ORDERED: Lidocaine 1% PF 5 ML VIAL ONE (12:05)
[2021-09-21] MEDS ORDERED: Ondansetron PF 4 MG/2 ML Vial ONE (12:05)
[2021-09-21] MEDS ORDERED: Dexamethasone 20 MG/5 ML VIAL ONE (12:05)
[2021-09-21] MEDS ORDERED: Succinylcholine 200 MG/10 ml SYRINGE FS ONE (12:05)
[2021-09-21] MEDS ORDERED: HYDROmorphone 2 MG/ML VIAL SLOW IVP PRN (12:58)
[2021-09-21] MEDS ORDERED: Ondansetron HCl/PF 4 MG/2 ML Vial IVP PRN (12:58)
[2021-09-21] MEDS ORDERED: Morphine Sulfate 2 MG/ML SYRINGE SLOW IVP PRN (12:58)
[2021-09-21] MEDS ORDERED: Promethazine HCl 25 MG/ML VIAL IVPB PRN (12:58)
[2021-09-21] MEDS ORDERED: Promethazine HCl 25 MG/ML VIAL IM PRN (12:58)
[2021-09-21] MEDS: Cefepime 1 GM in Sodium Chloride 0.9% 100 ML IVPB SCH ×2 (13:28→22:40)
[2021-09-21 14:13] LABS: ANA Symphony (Qualitative) Negative (Negative); ANA Symphony (Quantitative) 0.2 Ratio (< 0.7 Negative); EliA Vaculitis New Method **** NEW METHOD ****; Mitochondrial Ab 1.2 U/mL (<4 Negative)
[2021-09-21] MEDS: Thiamine 100 MG TAB PO SCH (20:43)
[2021-09-22] MEDS: Levothyroxine Sodium 75 MCG TAB PO SCH (05:03)
[2021-09-22 06:44] LABS: Hemoglobin 10.1 g/dL (12.0-16.0); Mean Corpuscular HGB CONC 31.9 g/dL (32.0-36.0); Mean Corpuscular Hemoglobin 34.8 pg (27.0-31.0); Mean Platelet Volume 7.7 fL (7.4-10.4); Platelet Count 238 thou/uL (130-400); RBC Distribution Width 15.2 % (11.5-14.5); Red Blood Cell (RBC) Count 2.89 mill/uL (4.20-5.40); White Blood Cell (WBC) Count 13.2 thou/uL (4.8-10.8)
[2021-09-22 06:58] LABS: ALT (SGPT) 50 U/L (8-55); AST (SGOT) 97 U/L (5-34); Albumin 2.7 g/dL (3.5-5.0); Alkaline Phosphatase 135 U/L (40-110); Anion Gap 10 mmol/L (10-20); BUN (Urea Nitrogen) 13 mg/dL (9.8-20.1); Bilirubin, Total 8.5 mg/dL (0.2-1.2); Calc. Creatinine Clearance 115 mL/min (70-130); Calcium 8.3 mg/dL (7.8-10.44); Carbon Dioxide 24 mmol/L (22-29); Chloride 99 mmol/L (98-107); Globulin 3.6 g/dL (2.4-3.5); Glucose 106 mg/dL (70-105); Potassium 4.3 mmol/L (3.5-5.1); Protein, Total 6.3 g/dL (6.0-8.3); Sodium 129 mmol/L (136-145)
[2021-09-22] MEDS: levETIRAcetam 500 MG TAB PO SCH ×2 (08:07→21:00)
[2021-09-22] MEDS: Potassium Chloride 20 MEQ TAB PO SCH (08:07)
[2021-09-22] MEDS: Magnesium Oxide 400 MG TAB PO SCH (08:08)
[2021-09-22] MEDS: Folic Acid 1 MG TAB PO SCH (08:08)
[2021-09-22] MEDS: Multivit, Therapeutic 1 TAB PO SCH (08:08)
[2021-09-22] MEDS: Sodium Chloride 1 GM TAB PO SCH ×3 (09:08→21:00)
[2021-09-22] MEDS ORDERED: Sodium Chloride 1 GM TAB PO SCH (11:00)
[2021-09-22] MEDS: Cefepime 1 GM in Sodium Chloride 0.9% 100 ML IVPB SCH ×2 (11:56→22:25)
[2021-09-22] MEDS: Amlodipine 5 MG TAB PO SCH (12:33)
[2021-09-22] MEDS: Thiamine 100 MG TAB PO SCH (21:01)
[2021-09-22] MEDS: HYDROcodone/Acetaminophen 10/325 mg Tablet PO PRN (21:04)
[2021-09-23] MEDS: HYDROcodone/Acetaminophen 10/325 mg Tablet PO PRN ×2 (05:18→22:07)
[2021-09-23] MEDS: Levothyroxine Sodium 75 MCG TAB PO SCH (05:18)
[2021-09-23 08:36] LABS: #Eosinphils 0.2 thou/uL (0.0-0.7); #Lymphocytes 2.6 thou/uL (1.20-3.40); #Monocytes 0.7 thou/uL (0.11-0.59); #Neutrophils 5.6 thou/uL (1.40-6.50); %Basophils 0.5 % (0.0-1.0); %Eosinophils 1.8 % (0.0-10.0); %Lymphocytes 28.6 % (21.0-51.0); %Monocytes 7.9 % (0.0-10.0); %Neutrophils 61.2 % (42.0-75.0); Hemoglobin 10.9 g/dL (12.0-16.0); Mean Corpuscular HGB CONC 31.3 g/dL (32.0-36.0); Mean Corpuscular Hemoglobin 34.6 pg (27.0-31.0); Mean Platelet Volume 7.5 fL (7.4-10.4); Platelet Count 269 thou/uL (130-400); RBC Distribution Width 15.1 % (11.5-14.5); Red Blood Cell (RBC) Count 3.16 mill/uL (4.20-5.40); White Blood Cell (WBC) Count 9.2 thou/uL (4.8-10.8)
[2021-09-23] MEDS: Multivit, Therapeutic 1 TAB PO SCH (08:54)
[2021-09-23] MEDS: Potassium Chloride 20 MEQ TAB PO SCH (08:54)
[2021-09-23 08:55] LABS: ALT (SGPT) 50 U/L (8-55); AST (SGOT) 94 U/L (5-34); Albumin 2.7 g/dL (3.5-5.0); Alkaline Phosphatase 150 U/L (40-110); Anion Gap 12 mmol/L (10-20); BUN (Urea Nitrogen) 7 mg/dL (9.8-20.1); Bilirubin, Total 7.4 mg/dL (0.2-1.2); Calc. Creatinine Clearance 138 mL/min (70-130); Calcium 8.2 mg/dL (7.8-10.44); Carbon Dioxide 23 mmol/L (22-29); Chloride 101 mmol/L (98-107); Glucose 87 mg/dL (70-105); Potassium 4.2 mmol/L (3.5-5.1); Protein, Total 6.7 g/dL (6.0-8.3); Sodium 132 mmol/L (136-145)
[2021-09-23] MEDS: levETIRAcetam 500 MG TAB PO SCH ×2 (08:55→20:57)
[2021-09-23] MEDS: Folic Acid 1 MG TAB PO SCH (08:55)
[2021-09-23] MEDS: Sodium Chloride 1 GM TAB PO SCH ×3 (08:55→20:57)
[2021-09-23] MEDS: Magnesium Oxide 400 MG TAB PO SCH (08:55)
[2021-09-23] MEDS: Ergocalciferol 1.25 MG(50,000 UNITS) CAP PO SCH (09:05)
[2021-09-23] MEDS: Amlodipine 5 MG TAB PO SCH (10:26)
[2021-09-23] MEDS: Cefepime 1 GM in Sodium Chloride 0.9% 100 ML IVPB SCH ×2 (11:02→22:08)
[2021-09-23] MEDS: Thiamine 100 MG TAB PO SCH (20:57)
[2021-09-24] MEDS: Levothyroxine Sodium 75 MCG TAB PO SCH (05:15)
[2021-09-24 06:32] LABS: ALT (SGPT) 43 U/L (8-55); AST (SGOT) 86 U/L (5-34); Albumin 2.4 g/dL (3.5-5.0); Alkaline Phosphatase 139 U/L (40-110); Anion Gap 11 mmol/L (10-20); BUN (Urea Nitrogen) 5 mg/dL (9.8-20.1); Bilirubin, Total 6.8 mg/dL (0.2-1.2); Calc. Creatinine Clearance 153 mL/min (70-130); Calcium 8.1 mg/dL (7.8-10.44); Carbon Dioxide 27 mmol/L (22-29); Chloride 101 mmol/L (98-107); Globulin 3.6 g/dL (2.4-3.5); Glucose 75 mg/dL (70-105); Potassium 3.9 mmol/L (3.5-5.1); Sodium 135 mmol/L (136-145)
[2021-09-24] MEDS: Multivit, Therapeutic 1 TAB PO SCH (08:22)
[2021-09-24] MEDS: Potassium Chloride 20 MEQ TAB PO SCH (08:22)
[2021-09-24] MEDS: Amlodipine 5 MG TAB PO SCH (08:22)
[2021-09-24] MEDS: Sodium Chloride 1 GM TAB PO SCH ×3 (08:22→20:50)
[2021-09-24] MEDS: levETIRAcetam 500 MG TAB PO SCH ×2 (08:22→20:49)
[2021-09-24] MEDS: Folic Acid 1 MG TAB PO SCH (08:22)
[2021-09-24] MEDS: Magnesium Oxide 400 MG TAB PO SCH (08:22)
[2021-09-24] MEDS: Bisacodyl 5 MG TAB PO PRN ×2 (13:45→20:50)
[2021-09-24] MEDS: HYDROcodone/Acetaminophen 10/325 mg Tablet PO PRN (14:30)
[2021-09-24 16:46] LABS: #Basophils 0.1 thou/uL (0.0-0.2); #Eosinphils 0.1 thou/uL (0.0-0.7); #Lymphocytes 2.5 thou/uL (1.20-3.40); #Monocytes 0.8 thou/uL (0.11-0.59); #Neutrophils 7.2 thou/uL (1.40-6.50); %Basophils 0.9 % (0.0-1.0); %Eosinophils 1.3 % (0.0-10.0); %Lymphocytes 23.1 % (21.0-51.0); %Monocytes 7.8 % (0.0-10.0); %Neutrophils 66.9 % (42.0-75.0); Hemoglobin 10.9 g/dL (12.0-16.0); Mean Corpuscular HGB CONC 33.8 g/dL (32.0-36.0); Mean Corpuscular Hemoglobin 36.1 pg (27.0-31.0); Mean Platelet Volume 7.2 fL (7.4-10.4); Platelet Count 283 thou/uL (130-400); RBC Distribution Width 14.9 % (11.5-14.5); Red Blood Cell (RBC) Count 3.03 mill/uL (4.20-5.40); White Blood Cell (WBC) Count 10.7 thou/uL (4.8-10.8)
[2021-09-24] MEDS: Thiamine 100 MG TAB PO SCH (20:49)
[2021-09-25] MEDS: HYDROcodone/Acetaminophen 10/325 mg Tablet PO PRN (01:59)
[2021-09-25] MEDS: Levothyroxine Sodium 75 MCG TAB PO SCH (05:33)
[2021-09-25 07:37] LABS: ALT (SGPT) 41 U/L (8-55); AST (SGOT) 81 U/L (5-34); Albumin 2.3 g/dL (3.5-5.0); Alkaline Phosphatase 152 U/L (40-110); Anion Gap 13 mmol/L (10-20); BUN (Urea Nitrogen) 5 mg/dL (9.8-20.1); Calc. Creatinine Clearance 163 mL/min (70-130); Calcium 8.5 mg/dL (7.8-10.44); Carbon Dioxide 26 mmol/L (22-29); Chloride 99 mmol/L (98-107); Globulin 3.8 g/dL (2.4-3.5); Glucose 83 mg/dL (70-105); Potassium 3.8 mmol/L (3.5-5.1); Protein, Total 6.1 g/dL (6.0-8.3); Sodium 134 mmol/L (136-145)
[2021-09-25] MEDS: Sodium Chloride 1 GM TAB PO SCH ×3 (07:56→22:42)
[2021-09-25] MEDS: Multivit, Therapeutic 1 TAB PO SCH (07:56)
[2021-09-25] MEDS: levETIRAcetam 500 MG TAB PO SCH ×2 (07:56→22:42)
[2021-09-25] MEDS: Magnesium Oxide 400 MG TAB PO SCH (07:56)
[2021-09-25] MEDS: Potassium Chloride 20 MEQ TAB PO SCH (07:56)
[2021-09-25] MEDS: Amlodipine 5 MG TAB PO SCH (07:56)
[2021-09-25] MEDS: Folic Acid 1 MG TAB PO SCH (07:57)
[2021-09-25 08:14] LABS: Magnesium 1.5 mg/dL (1.6-2.6)
[2021-09-25] MEDS ORDERED: Morphine 2 MG/ML VIAL SLOW IVP PRN (09:30)
[2021-09-25] MEDS: Bisacodyl 5 MG TAB PO PRN (11:13)
[2021-09-25] MEDS: Magnesium Sulfate In Water 4 GM in Premix Bag 1 BAG IVPB SCH (11:14)
[2021-09-25] MEDS: Thiamine 100 MG TAB PO SCH (22:42)
[2021-09-26] MEDS: Levothyroxine Sodium 75 MCG TAB PO SCH (06:16)
[2021-09-26 07:00] LABS: ALT (SGPT) 42 U/L (8-55); AST (SGOT) 81 U/L (5-34); Albumin 2.3 g/dL (3.5-5.0); Alkaline Phosphatase 162 U/L (40-110); Anion Gap 12 mmol/L (10-20); BUN (Urea Nitrogen) 5 mg/dL (9.8-20.1); Bilirubin, Total 6.6 mg/dL (0.2-1.2); Calc. Creatinine Clearance 156 mL/min (70-130); Calcium 8.3 mg/dL (7.8-10.44); Carbon Dioxide 26 mmol/L (22-29); Chloride 98 mmol/L (98-107); Glucose 84 mg/dL (70-105); Potassium 3.9 mmol/L (3.5-5.1); Protein, Total 6.3 g/dL (6.0-8.3); Sodium 132 mmol/L (136-145)
[2021-09-26] MEDS: Magnesium Oxide 400 MG TAB PO SCH ×2 (08:37→20:01)
[2021-09-26] MEDS: Multivit, Therapeutic 1 TAB PO SCH (08:38)
[2021-09-26] MEDS: Potassium Chloride 20 MEQ TAB PO SCH (08:38)
[2021-09-26] MEDS: levETIRAcetam 500 MG TAB PO SCH ×2 (08:38→20:01)
[2021-09-26] MEDS: Sodium Chloride 1 GM TAB PO SCH ×3 (08:38→20:01)
[2021-09-26] MEDS: Amlodipine 5 MG TAB PO SCH (08:38)
[2021-09-26] MEDS: Folic Acid 1 MG TAB PO SCH (08:39)
[2021-09-26] MEDS: Magnesium Sulfate In Water 4 GM in Premix Bag 1 BAG IVPB SCH (12:09)
[2021-09-26] MEDS: HYDROcodone/Acetaminophen 10/325 mg Tablet PO PRN (18:13)
[2021-09-26] MEDS: Thiamine 100 MG TAB PO SCH (20:01)
[2021-09-27] MEDS: Levothyroxine Sodium 75 MCG TAB PO SCH (05:44)
[2021-09-27] MEDS: Folic Acid 1 MG TAB PO SCH (09:01)
[2021-09-27] MEDS: Multivit, Therapeutic 1 TAB PO SCH (09:01)
[2021-09-27] MEDS: Potassium Chloride 20 MEQ TAB PO SCH (09:01)
[2021-09-27] MEDS: Magnesium Oxide 400 MG TAB PO SCH (09:01)
[2021-09-27] MEDS: Sodium Chloride 1 GM TAB PO SCH (09:02)
[2021-09-27] MEDS: levETIRAcetam 500 MG TAB PO SCH (09:02)
[2021-09-27] MEDS: Amlodipine 5 MG TAB PO SCH (09:02)
[2021-09-27 11:57] VITALS: BP 123/80; TEMP 98.4
[2021-09-27 12:03] LABS: ALT (SGPT) 46 U/L (8-55); AST (SGOT) 83 U/L (5-34); Albumin 2.6 g/dL (3.5-5.0); Alkaline Phosphatase 183 U/L (40-110); Anion Gap 13 mmol/L (10-20); BUN (Urea Nitrogen) 4 mg/dL (9.8-20.1); Bilirubin, Total 6.5 mg/dL (0.2-1.2); Calc. Creatinine Clearance 144 mL/min (70-130); Calcium 8.4 mg/dL (7.8-10.44); Carbon Dioxide 24 mmol/L (22-29); Chloride 100 mmol/L (98-107); Globulin 4.4 g/dL (2.4-3.5); Glucose 101 mg/dL (70-105); Sodium 133 mmol/L (136-145)
== END 2021-09-27 15:31 | disposition home or self-care (01) | DRG 417 ==
LOC: ERS 16:37 → T4-A 20:36 → OBSVTOIN 09-15 12:36
PROVIDERS: ADMIT Internal Medicine; ATTEND Internal Medicine
PROC: 0DB78ZX Excision of Stomach, Pylorus, Via Natural or Artificial Opening Endoscopic, Diagnostic (ICD-10-PCS; 2021-09-17)
PROC: 0FT44ZZ Resection of Gallbladder, Percutaneous Endoscopic Approach (ICD-10-PCS; principal; 2021-09-20)
PROC: 0FB14ZX Excision of Right Lobe Liver, Percutaneous Endoscopic Approach, Diagnostic (ICD-10-PCS; 2021-09-20)
PROC: BF131ZZ Fluoroscopy of Gallbladder and Bile Ducts using Low Osmolar Contrast (ICD-10-PCS; 2021-09-20)
PROC: 6A550Z2 Pheresis of Platelets, Single (ICD-10-PCS; 2021-09-20)
PROC: 0F798ZZ Dilation of Common Bile Duct, Via Natural or Artificial Opening Endoscopic (ICD-10-PCS; 2021-09-21)
PROC: BF101ZZ Fluoroscopy of Bile Ducts using Low Osmolar Contrast (ICD-10-PCS; 2021-09-21)
DX: K80.00 Calculus of gallbladder with acute cholecystitis without obstruction (principal); G92.8 Other toxic encephalopathy; E22.2 Syndrome of inappropriate secretion of antidiuretic hormone; N39.0 Urinary tract infection, site not specified; Z20.822 Contact with and (suspected) exposure to COVID-19; K26.9 Duodenal ulcer, unspecified as acute or chronic, without hemorrhage or perforation; K25.9 Gastric ulcer, unspecified as acute or chronic, without hemorrhage or perforation; I10 Essential (primary) hypertension; F25.9 Schizoaffective disorder, unspecified; F10.20 Alcohol dependence, uncomplicated; F32.A Depression, unspecified; G89.29 Other chronic pain; M54.9 Dorsalgia, unspecified; G40.909 Epilepsy, unspecified, not intractable, without status epilepticus; I25.10 Atherosclerotic heart disease of native coronary artery without angina pectoris; G62.9 Polyneuropathy, unspecified; K70.10 Alcoholic hepatitis without ascites; D69.6 Thrombocytopenia, unspecified; E80.6 Other disorders of bilirubin metabolism; E86.9 Volume depletion, unspecified; E55.9 Vitamin D deficiency, unspecified; E03.9 Hypothyroidism, unspecified; K29.50 Unspecified chronic gastritis without bleeding; B96.81 Helicobacter pylori [H. pylori] as the cause of diseases classified elsewhere; K21.9 Gastro-esophageal reflux disease without esophagitis; K70.0 Alcoholic fatty liver; D63.8 Anemia in other chronic diseases classified elsewhere; E87.6 Hypokalemia; Z28.21 Immunization not carried out because of patient refusal; Z79.899 Other long term (current) drug therapy; Z95.5 Presence of coronary angioplasty implant and graft; Z98.51 Tubal ligation status; Z98.890 Other specified postprocedural states; Z82.49 Family history of ischemic heart disease and other diseases of the circulatory system; Z71.41 Alcohol abuse counseling and surveillance of alcoholic; S80.02XA Contusion of left knee, initial encounter; S80.01XA Contusion of right knee, initial encounter; W18.30XA Fall on same level, unspecified, initial encounter; Y92.009 Unspecified place in unspecified non-institutional (private) residence as the place of occurrence of the external cause
CPT/HCPCS: 36415; 36416; 36430; 47532; 51701; 70450; 71045; 74177; 74181; 74330; 76705; 78226; 80053; 80074; 80076; 81003; 81015; 82105; 82247; 82306; 82390; 82607; 82728; 82746; 83516; 83550; 83605; 83690; 83735; 83930; 83935; 84100; 84132; 84295; 84443; 84484; 85025; 85027; 85610; 85652; 85730; 86015; 86038; 86140; 86225; 86850; 86900; 86901; 88304; 88305; 88307; 88313; 88342; 93005; 96360; 96361; 96365; 96367; 96375; A9537; C1713; C1751; C9113; G0378; J0171; J0692; J1100; J1610; J1885; J2270; J2405; J2704; J3010; J3411; J3475; J3480; J3490; J7030; P9035; P9047; Q9967; S0020; U0003; U0005

== ENCOUNTER 2021-12-06 13:24 | Observation (INO) | payer MEDICARE, MEDICAID ==
[2021-12-06] MEDS ORDERED: Iopamidol-370 76% 500 ML 1 ML ONE (15:37)
[2021-12-06 15:52] LABS: #Eosinphils 0.1 thou/uL (0.0-0.7); #Lymphocytes 3.1 thou/uL (1.20-3.40); #Monocytes 0.5 thou/uL (0.11-0.59); %Basophils 0.6 % (0.0-1.0); %Eosinophils 1.2 % (0.0-10.0); %Lymphocytes 46.2 % (21.0-51.0); %Monocytes 7.2 % (0.0-10.0); %Neutrophils 44.8 % (42.0-75.0); Hemoglobin 11.8 g/dL (12.0-16.0); Mean Corpuscular HGB CONC 33.2 g/dL (32.0-36.0); Mean Corpuscular Hemoglobin 31.5 pg (27.0-31.0); Mean Corpuscular Volume 94.6 fL (78.0-98.0); Mean Platelet Volume 9.2 fL (7.4-10.4); Platelet Count 80 thou/uL (130-400); RBC Distribution Width 16.4 % (11.5-14.5); Red Blood Cell (RBC) Count 3.75 mill/uL (4.20-5.40); White Blood Cell (WBC) Count 6.7 thou/uL (4.8-10.8)
[2021-12-06 16:11] LABS: ALT (SGPT) 32 U/L (8-55); AST (SGOT) 155 U/L (5-34); Albumin 2.7 g/dL (3.5-5.0); Alkaline Phosphatase 272 U/L (40-110); Anion Gap 19 mmol/L (10-20); BUN (Urea Nitrogen) Less than 4 mg/dL (9.8-20.1); Calc. Creatinine Clearance 0 mL/min (70-130); Calcium 8.2 mg/dL (7.8-10.44); Carbon Dioxide 25 mmol/L (22-29); Chloride 93 mmol/L (98-107); Estimated GFR 109; Globulin 5.1 g/dL (2.4-3.5); Glucose 74 mg/dL (70-105); Lipase 19 U/L (8-78); Potassium 4.4 mmol/L (3.5-5.1); Protein, Total 7.8 g/dL (6.0-8.3); Sodium 133 mmol/L (136-145)
[2021-12-06 16:12] LABS: Anisocytosis SLIGHT = 6-15 cells (100X) (0-5/hpf); MDiff Complete? YES; Platelet Morphology Comment Appears Decreased; Polychromasia SLIGHT = 2-3 cells (100X) (0-2/hpf); Target Cells SLIGHT = 2-5 cells (100X) (0-1/hpf)
[2021-12-06] MEDS ORDERED: Ondansetron PF 4 MG/2 ML Vial ONE (17:20)
[2021-12-06] MEDS ORDERED: Morphine 4 MG/ML VIAL ONE (17:20)
[2021-12-06] MEDS ORDERED: Aspirin Chewable 81 MG TAB ONE (18:58)
[2021-12-06 20:12] LABS: Troponin I Less than 0.010 ng/mL (< 0.028)
[2021-12-06] MEDS ORDERED: Thiamine 100 MG TAB PO SCH (21:00)
[2021-12-06] MEDS ORDERED: Ondansetron ODT 4 MG TAB PO PRN (21:13)
[2021-12-06] MEDS ORDERED: Ondansetron PF 4 MG/2 ML Vial IVP PRN (21:13)
[2021-12-06] MEDS ORDERED: hydrALAZINE 20 MG/ML VIAL SLOW IVP PRN (21:13)
[2021-12-06] MEDS ORDERED: Nitroglycerin 0.4 MG TAB (25 Tab Bottle) SL PRN (21:15)
[2021-12-06] MEDS ORDERED: Electrolyte Replacement Protocol 1 EACH FS SCH (21:15)
[2021-12-06 22:30] VITALS: BMI 23.1
[2021-12-06] MEDS: Pantoprazole 40 MG VIAL IVP SCH (23:14)
[2021-12-06 23:15] LABS: Troponin I Less than 0.010 ng/mL (< 0.028)
[2021-12-06] MEDS: levETIRAcetam 500 MG TAB PO SCH (23:15)
[2021-12-06] MEDS: Acetaminophen 325 MG TAB PO PRN (23:15)
[2021-12-07] MEDS ORDERED: Ibuprofen 200 MG TAB PO PRN (04:26)
[2021-12-07 04:59] LABS: Anion Gap 18 mmol/L (10-20); BUN (Urea Nitrogen) Less than 4 mg/dL (9.8-20.1); Calc. Creatinine Clearance 137 mL/min (70-130); Calcium 7.5 mg/dL (7.8-10.44); Carbon Dioxide 22 mmol/L (22-29); Chloride 100 mmol/L (98-107); Estimated GFR 111; Magnesium 1.5 mg/dL (1.6-2.6); Sodium 136 mmol/L (136-145)
[2021-12-07 05:02] LABS: Amphetamine Not Detected (NotDetected); Barbiturates Screen Not Detected (NotDetected); Benzodiazepine Screen Not Detected (NotDetected); Cocaine Metabolite Screen Not Detected (NotDetected); Methadone Not Detected (NotDetected); Methamphetamine Not Detected (NotDetected); Opiate Screen Detected (NotDetected); Oxycodone Screen Not Detected (NotDetected); Phencyclidine (PCP) Not Detected (NotDetected); THC/Cannabinoid Screen Not Detected (NotDetected); Tricyclic Screen Not Detected (NotDetected)
[2021-12-07 05:08] LABS: Glucose 57 mg/dL (70-105)
[2021-12-07] MEDS: Acetaminophen 325 MG TAB PO PRN (05:18)
[2021-12-07] MEDS ORDERED: Dextrose 5% in Water 1,000 ML IV PRN (05:23)
[2021-12-07] MEDS ORDERED: Dextrose 50% Abboject 50 ML SYRINGE SLOW IVP PRN (05:23)
[2021-12-07] MEDS ORDERED: Dextrose 5 %-0.45 % NaCl 1,000 ML IV SCH (05:30)
[2021-12-07] MEDS ORDERED: Magnesium Sulfate 2 GM in Sodium Chloride 0.9% 100 ML IVPB SCH (05:30)
[2021-12-07 05:33] LABS: #Lymphocytes 1.6 thou/uL (1.20-3.40); #Monocytes 0.4 thou/uL (0.11-0.59); #Neutrophils 5.1 thou/uL (1.40-6.50); %Basophils 0.4 % (0.0-1.0); %Eosinophils 0.6 % (0.0-10.0); %Lymphocytes 22.9 % (21.0-51.0); %Monocytes 5.3 % (0.0-10.0); %Neutrophils 70.8 % (42.0-75.0); Hemoglobin 10.9 g/dL (12.0-16.0); Mean Corpuscular HGB CONC 33.2 g/dL (32.0-36.0); Mean Corpuscular Hemoglobin 31.9 pg (27.0-31.0); Mean Corpuscular Volume 96.3 fL (78.0-98.0); Mean Platelet Volume 9.4 fL (7.4-10.4); Platelet Count 80 thou/uL (130-400); RBC Distribution Width 16.6 % (11.5-14.5); Red Blood Cell (RBC) Count 3.41 mill/uL (4.20-5.40); White Blood Cell (WBC) Count 7.2 thou/uL (4.8-10.8)
[2021-12-07] MEDS ORDERED: Magnesium 2 GM/50 ML(in water) 2 GM in Premix Bag 1 BAG IVPB SCH (06:00)
[2021-12-07] MEDS ORDERED: Levothyroxine Sodium 75 MCG TAB PO SCH (06:00)
[2021-12-07] MEDS ORDERED: ADENOSINE 60 MG/20 ML VIAL ONE (08:09)
[2021-12-07] MEDS: levETIRAcetam 500 MG TAB PO SCH (08:30)
[2021-12-07] MEDS: Pantoprazole 40 MG VIAL IVP SCH (08:31)
[2021-12-07] MEDS ORDERED: Amlodipine 5 MG TAB PO SCH (09:00)
[2021-12-07] MEDS ORDERED: Folic Acid 1 MG TAB PO SCH (09:00)
[2021-12-07] MEDS ORDERED: Aspirin Chewable 81 MG TAB PO SCH (09:00)
[2021-12-07 15:52] VITALS: BP 119/77; TEMP 98.8
[2021-12-07] MEDS ORDERED: Atorvastatin Calcium 40 MG TAB PO SCH (21:00)
== END 2021-12-07 17:02 | disposition home or self-care (01) ==
LOC: ERS 13:24 → 2NO 19:18
PROVIDERS: ADMIT Internal Medicine; ATTEND Internal Medicine
DX: R07.9 Chest pain, unspecified (principal); I10 Essential (primary) hypertension; F10.10 Alcohol abuse, uncomplicated; G40.909 Epilepsy, unspecified, not intractable, without status epilepticus; I25.10 Atherosclerotic heart disease of native coronary artery without angina pectoris; G89.29 Other chronic pain; M54.9 Dorsalgia, unspecified; R10.9 Unspecified abdominal pain; K76.0 Fatty (change of) liver, not elsewhere classified; E87.1 Hypo-osmolality and hyponatremia; R22.0 Localized swelling, mass and lump, head; Z79.890 Hormone replacement therapy; Z79.899 Other long term (current) drug therapy; Z91.011 Allergy to milk products; Z95.5 Presence of coronary angioplasty implant and graft; Z20.822 Contact with and (suspected) exposure to COVID-19
CPT/HCPCS: 70450; 71045; 74177; 78452; 80048; 80053; 80306; 82962; 83690; 83735; 83880; 84484 ×2; 85025 ×2; 93005; 93017; 94760; 96374; 96375 ×3; 96376; 99285; A9500; G0378 ×3; U0003; U0005; 36415; 36416; C9113; J0153; J2270; J2405; J3475; J7042; J7999; Q9967